=== PATIENT | female | born 2000 | race American Indian/Alaskan Native ===

== ENCOUNTER 2021-04-20 13:50 | Observation (INO) | payer MEDICAID ==
[2021-04-20] MEDS ORDERED: LACTATED RINGERS 1,000 ML ONE (14:43)
[2021-04-20] MEDS ORDERED: LACTATED RINGERS 500 ML IV ONE (14:50)
[2021-04-20] MEDS ORDERED: LACTATED RINGERS 1,000 ML IV SCH (15:00)
--- NOTE | 2021-04-20 16:02 | Ultrasound Report ---
ULTRASOUND OBSTETRIC LIMITED ULTRASOUND BIOPHYSICAL PROFILE INDICATION / CLINICAL INFORMATION: labor. Clinical Gestational Age (GA) in weeks, days: 29, 3 TECHNIQUE: Transabdominal. COMPARISON: None available. FINDINGS: BREATHING MOVEMENT = 2 GROSS BODY MOVEMENT = 2 TONE = 2 QUALITATIVE AMNIOTIC FLUID VOLUME = 2 TOTAL BIOPHYSICAL SCORE = 8/8 HEART RATE (beats per minute): 143 AMNIOTIC FLUID INDEX (cm) = 18 (normal = 7-24 cm) PRESENTATION: Breech. ADDITIONAL FINDINGS: None. IMPRESSION: 1. Biophysical Score = 8/8 2. Amniotic fluid index is within the normal range. Fetus is in breech presentation. UMBILICAL ARTERY VELOCIMETRY heart rate is 143 bpm. S/D ratio was measured x3. Maximum measurement is 2.2 with an average of 2.16. The waveform appears n ormal and is persistent. The resistive index is 0.54 with a normal waveform and a persistent pattern. IMPRESSION: Normal cord Doppler is within normal limits. Signer Name: Andres Mathews MD Signed: 04/20/2021 3:40 PM Workstation Name: [email or web address]
[2021-04-20] MEDS ORDERED: ONDANSETRON 4 MG/2 ML INJ IV PRN (16:17)
[2021-04-20] MEDS ORDERED: ACETAMINOPHEN 325 MG TAB PO PRN (16:17)
--- NOTE | 2021-04-20 16:26 | History and Physical Report ---
History of Present Illness Date of examination: 04/20/21 Date of admission: 04/20/21 Chief complaint: "I wasn't feeling my baby move" History of present illness: EDC Confirmation: 07/03/2021 Past History : 1 Term Births: 0 Premature Births: 0 Living Children: 0 Para: 0 Mult. Births: 0 Prev : 0 Aborta: 0 Elect. Ab: 0 Spont. Ab: 0 Ectopics: 0 Risk Factors: Smoked Tobacco Use: Never smoker Smokeless Tobacco Use: Never Passive smoke exposure: no Drug use: no HIV high-risk behavior: no Caffeine use: 0 drinks per day Alcohol use: no Exercise: no Seatbelt use: 100 % Family History Risk Factors: Family History of UT in females < 65 years old: no Family History of UT in males < 55 years old: yes Dietary Counseling: pn yes Family History Summary: MGM - Has Family History of Lung Cancer - Entered On: 01/03/2021 Father - Has Family History of Hypertension - Entered On: 01/03/2021 Past Medical History: UTI's Recurrent 3-4 times/yr since 2018 Seizure x1 at 1 yr old and never had one ever again, no meds, no current specialist Past Surgical History: negative Past Medical History Anesthesia Complications: negative Anemia: negative Autoimmune Disorder: negative Bleeding Disorder: negative Blood Transfusions: negative Breast Disease: negative Diabetes: negative Heart Disease: negative Hypertension: negative Hepatitis/Liver Disease: negative Kidney Disease/UTI: negative Neurologic/Epilepsy/Migraines: negative Phlebitis/Varicosities: negative Psychiatric: negative Pulmonary Disease/Asthma: negative Thyroid Disease: negative Hospitalizations: negative Surgery (Non-database report writer): negative Abnormal PAP: negative CELSA Exposure: negative Infertility: negative Uterine Anomaly: negative Uterine Surgery (not C/S): negative Other Gynecologic Problems: negative Infection History Hx of STD: gonorrhea HIV Risk Eval: no Hepatitis B Risk Eval: low risk Personal hx. of genital herpes: no Partner hx. of genital herpes: no Rash, Viral, or Febrile illness since last LMP? no Varicella/Chicken Pox Status: Immunized TB Risk: no Genetic History Congenital Heart Defect: Mom: no Dad: no Cristal Disease: Mom: no Dad: no Thalassemia Mom: no Dad: no Neural Tube Defect Mom: no Dad: no Down's Syndrome Mom: no Dad: no Umesh-Sachs Mom: no Dad: no Sickle Cell Disease/Trait Mom: no Dad: no Hemophilia Mom: no Dad: no Muscular Dystrophy Mom: no Dad: no Cystic Fibrosis Mom: no Dad: no James Chorea Mom: no Dad: no Mental Retardation Mom: no Dad: no Fragile X Mom: no Dad: no Other Genetic/Chromosomal Disorder Mom: no Dad: no Child w/other defect Mom: no Dad: no Enviromental Exposures Enviromental Exposures Reviewed Xray Exposure: no Medication, drug, or alcohol use since LMP: no Chemical/Other Exposure: no Exposure to Cat Liter: no Hx of Parvovirus (Fifth Disease): no Occupational Exposure to Children: none Active Medications (reviewed today): MACROBID 100 MG ORAL CAPSULE (NITROFURANTOIN MONOHYD MACRO) 1 bid po PNV () Current Allergies (reviewed today): No known allergies Past History Past Medical History: other (see HPI) Past Surgical History: other (see HPI) 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) Family/Genetic History: other (see HPI) Social history: other (see HPI) - Obstetrical History Expected Date of Delivery: 07/03/21 Actual Gestation: 29 Week(s) 3 Day(s) : 1 Para: 0 Hx # Term Pregnancies: 0 Number of Pregnancies: 0 Spontaneous Abortions: 0 Induced : 0 Number of Living Children: 0 Medications and Allergies Allergies Allergy/AdvReac Type Severity Reaction Status Date / Time No Known Allergies Allergy Unverified 04/20/21 14:50 Active Meds: Active Medications Acetaminophen (Acetaminophen 325 Mg Tab) 650 mg PO Q4H PRN PRN Reason: Pain MILD(1-3)/Fever >100.5/CASTORENA Betamethasone Acet/Betameth SodPhos (Betamet Acet/Betamet Na Ph 6 Mg/Ml Inj 5 Ml Mdv) 12 mg IM Q24HR NAVNEET Stop: 04/21/21 10:01 Lactated Ringer's (Lactated Ringers) 1,000 mls @ 125 mls/hr IV DIRECT NAVNEET Multivitamins/Iron/Calcium ( Xcw18-Tf Fumarate-Folic Acid Vit Tab) 1 each PO QDAY NAVNEET Ondansetron HCl (Ondansetron 4 Mg/2 Ml Inj) 4 mg IV Q6H PRN PRN Reason: Nausea And Vomiting Review of Systems All systems: negative - Vital Signs Vital signs: Vital Signs Pulse BP Pulse Ox 81 99/64 94 04/20/21 14:31 04/20/21 14:31 04/20/21 14:31 Temp Pulse Resp BP Pulse Ox 98.2 F 96 H 16 118/66 98 04/20/21 16:22 04/20/21 16:23 04/20/21 16:22 04/20/21 15:53 04/20/21 16:24 - Physical Exam Breasts: Positive: deferred Cardiovascular: Regular rate Lungs: Positive: Clear to auscultation, Normal air movement Abdomen: Positive: normal appearance, soft. Negative: tenderness, guarding, ri gidity Genitourinary (Female): Positive: normal external genitalia, normal perenium Vulva: both: normal Vagina: Positive: normal moisture Uterus: Positive: normal size, normal contour Anus/Rectum: Positive: normal perianal skin Extremities: Positive: normal - Obstetrical FHR: other Uterine Contraction Monitor Mode: External Uterine Contraction Pattern: Absent Uterine Tone Measurement Phase: Resting Results Result Diagrams: 04/20/21 14:45 All other labs normal. Tests: (1) Urine Culture, Routine ([id number]) Order Note: Clinical Information: SRC:UR Urine Culture, Routine [A] Final report *1 Tests: (2) Result ([id number]) ! Result 1 [A] "Result Below..." *2 RESULT: Staphylococcus aureus Greater than 100,000 colony forming units per mL Most isolates of Staphylococcus sp. produce a beta-lactamase enzyme rendering them resistant to penicillin. Please contact the laboratory if penicillin is being considered for therapy. ! Result 2 [A] BETAGB *3 Beta hemolytic Streptococcus, group B Greater than 100,000 colony forming units per mL Penicillin and ampicillin are drugs of choice for treatment of beta-hemolytic streptococcal infections. Susceptibility testing of penicillins and other beta-lactam agents approved by the FDA for treatment of beta-hemolytic streptococcal infections need not be performed routinely because nonsusceptible isolates are extremely rare in any beta-hemolytic streptococcus and have not been reported for Streptococcus pyogenes (group A). (CLSI) ! Antimicrobial Susceptibility MIHEAD *4 S = Susceptible; I = Intermediate; R = Resistant P = Positive; N = Negative MICS are expressed in micrograms per mL Antibiotic RSLT#1 RSLT#2 RSLT#3 RSLT#4 Ciprofloxacin S<=0.5 Gentamicin S<=0.5 Levofloxacin S<=0.12 Linezolid S =1 Moxifloxacin S<=0.25 Nitrofurantoin S<=16 Oxacillin S<=0.25 Quinupristin/Dalfopristin S<=0.25 Rifampin S<=0.5 Tetracycline S<=1 Trimethoprim/Sulfa S<=10 Vancomycin S<=0.5 Performed At: , [facility] [address] [id number] Joaquim Yee MD Phone: [phone] Note: An exclamation kasey (!) indicates a result that was not dispersed into the flowsheet. Document Creation Date: 01/08/2021 11:11 AM Tests: (1) Profile I ([id number]) HBsAg Screen Negative Negative *1 RPR Non Reactive Non Reactive *2 Rubella Antibodies, IgG 1.98 index Immune >0.99 *3 Non-immune <0.90 Equivocal 0.90 - 0.99 Immune >0.99 ABO Grouping A *4 Rh Factor Positive *5 Please note: Prior records for this patient's ABO / Rh type are not available for additional verification. Antibody Screen Negative Negative *6 WBC 5.8 x10E3/uL 3.4-10.8 *7 RBC 3.85 x10E6/uL 3.77-5.28 *8 Hemoglobin 12.0 g/dL 11.1-15.9 *9 Hematocrit 36.2 % 34.0-46.6 *10 MCV 94 fL 79-97 *11 MCH 31.2 pg 26.6-33.0 *12 MCHC 33.1 g/dL 31.5-35.7 *13 RDW 12.7 % 11.7-15.4 *14 Platelets 209 x10E3/uL 150-450 *15 Neutrophils 69 % Not Estab. *16 Lymphs 22 % Not Estab. *17 Monocytes 8 % Not Estab. *18 Eos 0 % Not Estab. *19 Basos 1 % Not Estab. *20 ! Immature Cells <No Reported Value> *21 Neutrophils (Absolute) 4.0 x10E3/uL 1.4-7.0 *22 Lymphs (Absolute) 1.3 x10E3/uL 0.7-3.1 *23 Monocytes(Absolute) 0.5 x10E3/uL 0.1-0.9 *24 Eos (Absolute) 0.0 x10E3/uL 0.0-0.4 *25 Baso (Absolute) 0.0 x10E3/uL 0.0-0.2 *26 ! Immature Granulocytes 0 % Not Estab. *27 ! Immature Grans (Abs) 0.0 x10E3/uL 0.0-0.1 *28 ! NRBC <No Reported Value> *29 Hematology Comments: <No Reported Value> *30 Tests: (2) AFP Tetra ([id number]) ! Results Report *31 ! Test Results: *Screen Negative* *32 ! Gest. Age on Collection Date 17.1 WEEKS *33 ! Gestat. Age Based On TRISTON *34 07/03/2021 ! M[age] TRISTON 20.5 yr *35 ! Race Black *36 ! Weight 107 lbs *37 ! Insulin Dep Diabetes No *38 ! Multiple Gestation No *39 ! AFP Value 52.7 ng/mL *40 ! AFP MoM 0.95 *41 ! hCG Value 52501 mIU/mL *42 ! hCG MoM 0.56 *43 ! uE3 Value 1.67 ng/mL *44 ! uE3 MoM 1.24 *45 ! KIERA Value 156.81 pg/mL *46 ! KIERA MoM 0.81 *47 ! OSBR Risk 1 [place] [address] *48 ! DSR (Second Trimester) 1 [place] [address] *49 ! DSR (By Age) 1 IN 1139 *50 ! T18 Risk Not increased *51 ! T18 (By Age) 1:4436 *52 ! Interpretation NL42 *53 Interpretation: Screen Negative This result is screen negative for OSB, Down Syndrome and Trisomy 18. The AFP MoM and patient specific risks calculated are based on the gestational age and the clinical information provided. This test can identify up to 80% of open neural tube defects. Closed neural tube defects and some open defects may not be detected by this test. The combination of maternal age, AFP, hCG, uE3, and KIERA identifies 75-80% of Down Syndrome. The combination of maternal age, AFP, hCG and uE3 identifies 60% of Trisomy 18 pregnancies. The [employer] recommends amniocentesis be offered to women age 35 and older. Recalculations are not recommended when gestational dating by LMP and ultrasound are within 10 days. ! Comments: [facility] *54 Sona Goodson, Ph.D., [facility] Director References: Available Upon Request. Multiples Of Median Cutoffs Abbreviation Definitions For AFP Elevations IDD- Insulin Dep Diabetes [place] 2.5 Black 2.8 OSBR- Open Spina Bifida IDD 2.0 Twins 4.5 Risk DSR Cutoff 1:270 DSR- Down Syndrome Risk T18 Cutoff 1:100 T18- Trisomy 18 Down Syndrome and Trisomy 18 screening are considered Investigational For further inquiries contact [employer] at [phone]. Tests: (3) HB Solu + Rflx Frac ([id number]) Hemoglobin (Hgb) Solubility Negative Negative *55 Tests: (4) HIV Ag/Ab with Reflex ([id number]) HIV Screen 4th Generation wRfx Non Reactive Non Reactive *56 Tests: (5) HCV Antibody reflex to ELEUTERIO ([id number]) ! HCV Ab <0.1 s/co ratio 0.0-0.9 *57 Tests: (6) Interpretation: ([id number]) ! Interpretation: SPRCS *58 Negative Not infected with HCV, unless recent infection is suspected or other evidence exists to indicate HCV infection. Assessment and Plan pt @ 29.3wks EGA presents for c/o DFM. CNM called to bedside for FHT's 60's bpm. Irregular heartbeat noted audibly; US immediately to BS and results WNL. Pt reports appt scheduled today with AMFM for irregular heartbeat seen on office US. Plan to admit to OBS for close monitoring and AMFM consult. Dr. Langford aware. AMFM notified. - Patient Problems (1) 29 weeks gestation of Status: Acute (2) Supervision of high risk in third trimester Status: Acute (3) Irregular heart rhythm in fetus Status: Acute Plan to address problem: @[address] Danie GUARDADO notified of pt with DFM, BPP 04/23, doppler flow studies WNL and SHERITA 18cm; recommendations received for [place] heart consult with echo for suspected heart block. Dr. Haile to call and arrange consult @[address] Haile- Dr. Chance to come to bedside today for echo and will give recommendations based on echo for possible discharge home and outpatient management. Dr Haile made aware- Pt reports feeling normal movement at this time. Recommendations recv'd for intermittent monitoring q4h for 20mins and not to perform CS for irregular heartbeat. Dr. Langford made aware. POC reviewed with pt, family member @BS, and Sun eligibility manager. All questions and concerns addressed. @[address] from Dr Chance and Dr Haile with Dx and discharge recommendations for pt to see AMFM on Saturday. Dr Langford made aware.
[2021-04-20] MEDS ORDERED: BETAMET ACET/BETAMET NA PH 6 MG/ML INJ 5 ML MDV IM SCH (17:00)
[2021-04-20 17:11] LABS: Basophils % (Auto) 0.4 % (0.0-1.8); Eosinophils % (Auto) 0.2 % (0.0-4.3); Hematocrit 33.8 % (30.3-42.9); Hemoglobin 11.8 gm/dl (10.1-14.3); Lymphocytes % (Auto) 23.8 % (13.4-35.0); Mean Corpuscular HGB Conc 35 % (30-34); Mean Corpuscular Volume 95 fl (79-97); Monocytes # (Auto) 0.8 K/mm3 (0.0-0.8); Monocytes % (Auto) 9.3 % (0.0-7.3); Red Blood Count 3.54 M/mm3 (3.65-5.03)
[2021-04-20 17:13] LABS: Platelet Count 148 K/mm3 (140-440)
[2021-04-20 19:29] VITALS: BP 108/65
--- NOTE | 2021-04-20 20:42 | Consultation ---
History of Present Illness - Reason for Consult Consult date: 04/20/21 arrhythmia Requesting physician: SHEKHAR OLIVER - History of Present Illness 20 yo female with a leigh carrying fetus at 29 3/7 weeks gestation. On March 30, the fetus was noted to have an irregular heart rhythm and follow up was recommended with M. The patient missed her appt today but noted decreased movement over the last 24 hours. She was therefore refer red to [facility] for evaluation. While on monitor drops in the HR to the 60s were noted with concern for possible heart block. Therefore we were asked to evaluate the HR. No recent medications or caffeine intake. PmHx significant for UTI TRISTON: 07/03/21 Past History Past Medical History: other (Hx of UTI during this for which she received abx. Last abx use >1 month ago) Family history: other (Ms. Dominguez has a first cousin with a history of a heart problem requiring a pacemaker. No other family history of heart disease) Medications and Allergies Allergies Allergy/AdvReac Type Severity Reaction Status Date / Time No Known Allergies Allergy Unverified 04/20/21 14:50 Active Meds: Active Medications Acetaminophen (Acetaminophen 325 Mg Tab) 650 mg PO Q4H PRN PRN Reason: Pain MILD(1-3)/Fever >100.5/CASTORENA Betamethasone Acet/Betameth SodPhos (Betamet Acet/Betamet Na Ph 6 Mg/Ml Inj 5 Ml Mdv) 12 mg IM Q24H NAVNEET Stop: 04/21/21 17:01 Last Admin: 04/20/21 16:36 Dose: 12 mg Documented by: Lactated Ringer's (Lactated Ringers) 1,000 mls @ 125 mls/hr IV DIRECT NAVNEET Ondansetron HCl (Ondansetron 4 Mg/2 Ml Inj) 4 mg IV Q6H PRN PRN Reason: Nausea And Vomiting Exam - Constitutional Vitals: Temp Pulse Resp BP Pulse Ox 98.2 F 103 H 16 108/65 100 04/20/21 16:22 04/20/21 19:28 04/20/21 16:22 04/20/21 19:28 04/20/21 16:43 Results - Labs CBC & Chem 7: 04/20/21 14:45 Labs: Abnormal lab results 04/20/21 Range/Units 14:45 RBC 3.54 L (3.65-5.03) M/mm3 MCH 33 H (28-32) pg MCHC 35 H (30-34) % RDW 13.0 L (13.2-15.2) % Lea % (Auto) 9.3 H (0.0-7.3) % Assessment and Plan ECHO report: The fetus is in the cephalic position. There is levocardia with atrial and abdominal situs solitus. There is a normal heart rate with one-to-one conduction at a rate of 120-125 bpm. The superior and inferior vena cavae return normally to the right atrium. At least 2 of 4 pulmonary veins return normally to the left atrium. Atrial sizes are normal. There is a PFO with [id number] shunting. The AV valves are normal with no stenosis or insufficiency. There is normal biventricular size and systolic function. There are no appreciable VSDs. Semilunar valves were normal with no stenosis. No aortic insufficiency. Trace intermittent pulmonary valve insufficiency noted. The great arteries are normally related. The branch pulmonary arteries are normal. The ductal and aortic arch is widely patent. The ductus arteriosus shunting normally right to left. There is a normal Doppler profile in the umbilical artery, vein and ductus venosus. There is no pericardial effusion and there is no cardiomegaly. Assesment: 1. Structurally normal heart with normal function 2. premature atrial contractions Rec: I discussed the above findings as well as the limitations of echocardiography with the patient and father of the child. They understand that atrial premature contractions are the most frequent rhythm abnormality in the fetus. They can be related to structural or functional heart disease but in this case are a benign finding . Most resolve on their own either pre- or postnatally. However, 1% of babies with atrial premature contractions are at risk for developing supraventricular tachycardia which can problematic. For t hat reason continued monitoring for sustained tachycardia by your molder sweep and/or perinatologist throughout the is recommended. If tachycardia is noted or signs of early heart failure or hydrops develop, we would like to see you again or consult with you by telephone. I explained to the patient that minor valve abnormalities, problems involving the veins and arteries outside of the heart, and small atrial and ventricular septal defects cannot be ruled out with echocardiogram. Total consult time: 1 hour (scanning, discussion of findings and limitations, charting, and discussion of the case with her MFM and OB.) - Patient Problems (1) Premature atrial contractions of fetus affecting management of Current Visit: Yes Status: Acute
--- NOTE | 2021-04-20 21:27 | Discharge Summary ---
Providers - Providers Date of Admission: 04/20/21 16:18 Date of discharge: 04/20/21 Attending physician: MONO ALFONSO Primary care physician: MONO ALFONSO Hospitalization Reason for admission: observation Episiotomy: none Laceration: none Other procedures: none complications: none Discharge diagnosis: other (IUP @ , PAC's of fetus affecting ) Condition at discharge: Good Disposition: DC-01 TO HOME OR SELFCARE - Discharge Diagnoses (1) 29 weeks gestation of Status: Acute (2) Supervision of high risk in third trimester Status: Acute (3) Irregular heart rhythm in fetus Status: Acute Plan - Provider Discharge Summary Activity: routine Diet: routine Instructions: routine Additional instructions: [] Smoking cessation referral if applicable(refer to patient education folder for contact #) [] Refer to [facility]'s [facility] Booklet Call your doctor immediately for: * Fever > 100.5 * Vaginal bleeding * Severe persistent headache * Shortness of breath * Reddened, hot, painful area to leg or breast * decreased movement <10 movements in 2 hours * contractions >6/hour * rupture of membranes Please schedule a follow up appointment for Saturday with [facility]. Thank you! - Follow up plan Follow up: MONO ALFONSO MD [Primary Care Provider] - 7 Days Forms: [facility] Discharge Summary
[2021-04-20] MEDS ORDERED: ZOLPIDEM 5 MG TAB PO PRN (21:28)
[2021-04-21] MEDS ORDERED: PRENATAL VIT27-FE FUMARATE-FOLIC ACID VIT TAB PO SCH (10:00)
== END 2021-04-20 21:00 | disposition home or self-care (01) ==
LOC: TRG 13:50 → APU 13:53 → LD 15:45 → TRG 16:17 → LD 16:18
PROVIDERS: ADMIT Obstetrics & Gynecology; ATTEND Obstetrics & Gynecology
DX: O36.8330 Maternal care for abnormalities of the fetal heart rate or rhythm, third trimester, not applicable or unspecified (principal); O09.613 Supervision of young primigravida, third trimester; O36.8130 Decreased fetal movements, third trimester, not applicable or unspecified; Z3A.29 29 weeks gestation of pregnancy
CPT/HCPCS: 36415; 76815; 76819; 76820; 85025; 86592; 86850; 86900; 86901; 96372; G0378; J0702; J7120

== ENCOUNTER 2021-06-20 20:56 | Inpatient (IN) | payer MEDICAID ==
--- NOTE | 2021-06-20 21:45 | History and Physical Report ---
History of Present Illness Date of examination: 06/20/21 Date of admission: 06/20/21 20:56 Chief complaint: Admitted for scheduled IOL d/t IUGR per [facility]'s recommendation History of present illness: EDC Confirmation: 07/03/2021 Past History : 1 Term Births: 0 Premature Births: 0 Living Children: 0 Para: 0 Mult. Births: 0 Prev : 0 Aborta: 0 Elect. Ab: 0 Spont. Ab: 0 Ectopics: 0 Risk Factors: Smoked Tobacco Use: Never smoker Smokeless Tobacco Use: Never Passive smoke exposure: no Drug use: no HIV high-risk behavior: no Caffeine use: 0 drinks per day Alcohol use: no Exercise: no Seatbelt use: 100 % Family History Risk Factors: Family History of NH in females < 65 years old: no Family History of NH in males < 55 years old: yes Dietary Counseling: pn yes Family History Summary: MGM - Has Family History of Lung Cancer - Entered On: 01/03/2021 Father - Has Family History of Hypertension - Entered On: 01/03/2021 Past Medical History: UTI's Recurrent 3-4 times/yr since 2018 Seizure x1 at 1 yr old and never had one ever again, no meds, no current specialist Past Surgical History: negative Past Medical History Anesthesia Complications: negative Anemia: negative Autoimmune Disorder: negative Bleeding Disorder: negative Blood Transfusions: negative Breast Disease: negative Diabetes: negative Heart Disease: negative Hypertension: negative Hepatitis/Liver Disease: negative Kidney Disease/UTI: negative Neurologic/Epilepsy/Migraines: negative Phlebitis/Varicosities: negative Psychiatric: negative Pulmonary Disease/Asthma: negative Thyroid Disease: negative Hospitalizations: negative Surgery (Non-still photographer): negative Abnormal PAP: negative CELSA Exposure: negative Infertility: negative Uterine Anomaly: negative Uterine Surgery (not C/S): negative Other Gynecologic Problems: negative Infection History Hx of STD: gonorrhea HIV Risk Eval: no Hepatitis B Risk Eval: low risk Personal hx. of genital herpes: no Partner hx. of genital herpes: no Rash, Viral, or Febrile illness since last LMP? no Varicella/Chicken Pox Status: Immunized TB Risk: no Genetic History Congenital Heart Defect: Mom: no Dad: no Cristal Disease: Mom: no Dad: no Thalassemia Mom: no Dad: no Neural Tube Defect Mom: no Dad: no Down's Syndrome Mom: no Dad: no Umesh-Sachs Mom: no Dad: no Sickle Cell Disease/Trait Mom: no Dad: no Hemophilia Mom: no Dad: no Muscular Dystrophy Mom: no Dad: no Cystic Fibrosis Mom: no Dad: no James Chorea Mom: no Dad: no Mental Retardation Mom: no Dad: no Fragile X Mom: no Dad: no Other Genetic/Chromosomal Disorder Mom: no Dad: no Child w/other defect Mom: no Dad: no Enviromental Exposures Enviromental Exposures Reviewed Xray Exposure: no Medication, drug, or alcohol use since LMP: no Chemical/Other Exposure: no Exposure to Cat Liter: no Hx of Parvovirus (Fifth Disease): no Occupational Exposure to Children: none Current Allergies (reviewed today): No known allergies Past History Past Medical History: other (see HPI) Past Surgical History: other (see HPI) 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) Family/Genetic History: other (see HPI) Social history: no significant social history - Obstetrical History Expected Date of Delivery: 07/03/21 Actual Gestation: 38 Week(s) 3 Day(s) : 1 Para: 0 Hx # Term Pregnancies: 0 Number of Pregnancies: 0 Spontaneous Abortions: 0 Induced : 0 Number of Living Children: 0 Medications and Allergies Allergies Allergy/AdvReac Type Severity Reaction Status Date / Time No Known Allergies Allergy Unverified 04/20/21 14:50 Home Medications Medication Instructions Recorded Confirmed Last Taken Type No Known Home Medications [No 06/20/21 06/20/21 Unknown History Reported Home Medications] Review of Systems All systems: negative - Physical Exam Breasts: Positive: normal Cardiovascular: Regular rate Lungs: Positive: Normal air movement Abdomen: Positive: normal appearance, soft Genitourinary (Female): Positive: normal external genitalia, normal perenium Vulva: both: normal - Obstetrical FHR: category 1 Uterine Contraction Monitor Mode: External Uterine Contraction Pattern: Irregular Results Result Diagrams: 06/20/21 22:00 All other labs normal. Assessment and Plan 20 y/o @ 38+1 weeks admitted for serial IOL d/t IUGR. also significant for irregular FHR with PACS. GBS +. - Patient Problems (1) 38 weeks gestation of Current Visit: Yes Status: Acute (2) GBS (group B Streptococcus carrier), +RV culture, currently Current Visit: Yes Status: Acute Plan to address problem: amp q 4hrs when closer to active labor (3) IUGR (intrauterine growth restriction) Current Visit: Yes Status: Acute Plan to address problem: close monitoring of FHT
[2021-06-20] MEDS ORDERED: miSOPROStol 200 MCG TAB PR PRN (21:46)
[2021-06-20] MEDS ORDERED: MINERAL OIL 30 ML ORAL LIQD PO PRN (21:46)
[2021-06-20] MEDS ORDERED: LIDOCAINE (2%) 20 MG/1 ML VIAL 20 ML MDV INFILTRATI ONE (21:46)
[2021-06-20] MEDS ORDERED: TERBUTALINE 1 MG/1 ML INJ SUB-Q PRN (21:46)
[2021-06-20] MEDS ORDERED: CARBOPROST TROMETHAMINE 250 MCG/1 ML INJ IM PRN (21:46)
[2021-06-20] MEDS ORDERED: OXYTOCIN 10 UNIT/1 ML INJ IM PRN (21:46)
[2021-06-20] MEDS ORDERED: ACETAMINOPHEN 325 MG TAB PO PRN (21:46)
[2021-06-20] MEDS ORDERED: ePHEDrine SULFATE 50 MG/1 ML INJ IV PRN (21:46)
[2021-06-20] MEDS ORDERED: ONDANSETRON 4 MG/2 ML INJ IV PRN (21:46)
[2021-06-20] MEDS ORDERED: LOPERAMIDE 2 MG CAP PO PRN (21:46)
[2021-06-20] MEDS ORDERED: METHYLERGONOVINE MALEATE 0.2 MG/ML VIAL IM PRN (21:46)
[2021-06-20] MEDS ORDERED: OXYTOCIN DRIP 30 UNITS/500 ML BAG IV SCH (22:00)
[2021-06-20 22:46] LABS: Hematocrit 33.9 % (30.3-42.9); Hemoglobin 11.4 gm/dl (10.1-14.3); Mean Corpuscular HGB Conc 34 % (30-34); Mean Corpuscular Volume 95 fl (79-97); Platelet Count 169 K/mm3 (140-440); Red Blood Count 3.56 M/mm3 (3.65-5.03); Red Cell Distribution Width 13.5 % (13.2-15.2)
[2021-06-20] MEDS ORDERED: DINOPROSTONE 10 MG VAG SUPP VG ONE (23:59)
[2021-06-21] MEDS: NalbUPHINE 10 MG/1 ML INJ IV PRN ×2 (05:24→13:34)
[2021-06-21] MEDS: LACTATED RINGERS 1,000 ML IV SCH ×2 (05:25→13:34)
--- NOTE | 2021-06-21 09:23 | Progress Note ---
Assessment and Plan A: 20 y.o. @ 38.2 wks, IOL d/t IUGR P: Cervidil removed. Allow patient to eat breakfast. Start Pitocin after breakfast. Subjective - Subjective Date of service: 06/21/21 Principal diagnosis: IOL d/t IUGR @ 38.2 wks Patient reports: movement normal, no new complaints, no loss of fluid, no vaginal bleeding, no contractions Objective - Vital Signs Vital Signs: Vital Signs - 12hr 06/20/21 06/20/21 06/20/21 21:44 21:46 21:48 Temperature 98.7 F Pulse Rate 80 96 H 80 Respiratory 12 Rate Blood Pressure 112/73 Blood Pressure 112/73 [Right] O2 Sat by Pulse 100 100 Oximetry 06/20/21 06/20/21 06/20/21 21:51 21:56 22:01 Temperature Pulse Rate 79 90 84 Respiratory Rate Blood Pressure Blood Pressure [Right] O2 Sat by Pulse 100 100 100 Oximetry 06/20/21 06/20/21 06/20/21 22:06 22:11 22:16 Temperature Pulse Rate 83 84 86 Respiratory Rate Blood Pressure Blood Pressure [Right] O2 Sat by Pulse 99 100 100 Oximetry 06/20/21 06/20/21 06/20/21 22:21 22:26 22:31 Temperature Pulse Rate 90 76 81 Respiratory Rate Blood Pressure Blood Pressure [Right] O2 Sat by Pulse 100 100 100 Oximetry 06/20/21 06/20/21 06/20/21 22:36 22:41 22:46 Temperature Pulse Rate 84 83 81 Respiratory Rate Blood Pressure Blood Pressure [Right] O2 Sat by Pulse 100 100 100 Oximetry 06/20/21 06/20/21 06/20/21 22:51 22:56 23:01 Temperature Pulse Rate 76 79 89 Respiratory Rate Blood Pressure Blood Pressure [Right] O2 Sat by Pulse 100 98 100 Oximetry 06/20/21 06/20/21 06/20/21 23:06 23:11 23:16 Temperature Pulse Rate 77 82 75 Respiratory Rate Blood Pressure Blood Pressure [Right] O2 Sat by Pulse 100 100 100 Oximetry 06/20/21 06/20/21 06/20/21 23:21 23:26 23:31 Temperature Pulse Rate 72 89 102 H Respiratory Rate Blood Pressure Blood Pressure [Right] O2 Sat by Pulse 99 99 100 Oximetry 06/20/21 06/20/2106/20/21 23:36 23:41 23:46 Temperature Pulse Rate 97 H 72 93 H Respiratory Rate Blood Pressure Blood Pressure [Right] O2 Sat by Pulse 99 99 100 Oximetry 06/20/21 06/20/21 06/21/21 23:51 23:56 00:01 Temperature Pulse Rate 78 80 77 Respiratory Rate Blood Pressure Blood Pressure [Right] O2 Sat by Pulse 99 100 100 Oximetry 06/21/21 06/21/21 06/21/21 00:06 00:11 00:16 Temperature Pulse Rate 70 94 H 72 Respiratory Rate Blood Pressure Blood Pressure [Right] O2 Sat by Pulse 100 99 99 Oximetry 06/21/21 06/21/21 06/21/21 00:21 00:26 00:31 Temperature Pulse Rate 87 87 81 Respiratory Rate Blood Pressure Blood Pressure [Right] O2 Sat by Pulse 98 100 100 Oximetry 06/21/21 06/21/21 06/21/21 00:36 00:41 00:46 Temperature Pulse Rate 74 74 95 H Respiratory Rate Blood Pressure Blood Pressure [Right] O2 Sat by Pulse 100 100 100 Oximetry 06/21/21 06/21/21 06/21/21 00:51 00:56 01:01 Temperature Pulse Rate 82 82 74 Respiratory Rate Blood Pressure Blood Pressure [Right] O2 Sat by Pulse 100 100 99 Oximetry 06/21/21 06/21/21 06/21/21 01:06 01:11 02:48 Temperature Pulse Rate 95 H 91 H 74 Respiratory Rate Blood Pressure Blood Pressure [Right] O2 Sat by Pulse 99 100 100 Oximetry 06/21/21 06/21/21 06/21/21 02:53 02:58 03:03 Temperature Pulse Rate 70 77 71 Respiratory Rate Blood Pressure Blood Pressure [Right] O2 Sat by Pulse 100 99 100 Oximetry 06/21/21 06/21/21 06/21/21 03:08 03:13 03:18 Temperature Pulse Rate 78 84 69 Respiratory Rate Blood Pressure Blood Pressure [Right] O2 Sat by Pulse 100 99 100 Oximetry 06/21/21 06/21/21 06/21/21 03:23 03:28 03:33 Temperature Pulse Rate 98 H 75 76 Respiratory Rate Blood Pressure Blood Pressure [Right] O2 Sat by Pulse 100 100 99 Oximetry 06/21/21 06/21/21 06/21/21 03:38 03:43 03:48 Temperature Pulse Rate 76 82 80 Respiratory Rate Blood Pressure Blood Pressure [Right] O2 Sat by Pulse 100 100 100 Oximetry 06/21/21 06/21/21 06/21/21 03:53 03:58 04:03 Temperature Pulse Rate 89 74 74 Respiratory Rate Blood Pressure Blood Pressure [Right] O2 Sat by Pulse 100 100 99 Oximetry 06/21/21 06/21/21 06/21/21 04:08 04:13 04:18 Temperature Pulse Rate 69 67 72 Respiratory Rate Blood Pressure Blood Pressure [Right] O2 Sat by Pulse 100 99 100 Oximetry 06/21/21 06/21/21 06/21/21 04:23 04:28 04:33 Temperature Pulse Rate 69 67 68 Respiratory Rate Blood Pressure Blood Pressure [Right] O2 Sat by Pulse 100 100 100 Oximetry 06/21/21 06/21/21 06/21/21 04:38 04:43 04:48 Temperature Pulse Rate 80 72 74 Respiratory Rate Blood Pressure Blood Pressure [Right] O2 Sat by Pulse 100 100 99 Oximetry 06/21/21 06/21/21 06/21/21 04:53 04:58 05:03 Temperature Pulse Rate 68 81 73 Respiratory Rate Blood Pressure Blood Pressure [Right] O2 Sat by Pulse 100 100 100 Oximetry 06/21/21 06/21/21 06/21/21 05:08 05:13 05:18 Temperature Pulse Rate 65 69 79 Respiratory Rate Blood Pressure Blood Pressure [Right] O2 Sat by Pulse 100 100 100 Oximetry 06/21/21 06/21/21 06/21/21 05:21 05:23 05:28 Temperature Pulse Rate 82 69 84 Respiratory Rate Blood Pressure 120/77 Blood Pressure [Right] O2 Sat by Pulse 100 100 Oximetry 06/21/21 06/21/21 06/21/21 05:33 05:38 05:43 Temperature Pulse Rate 77 72 72 Respiratory Rate Blood Pressure Blood Pressure [Right] O2 Sat by Pulse 99 99 99 Oximetry 06/21/21 06/21/21 06/21/21 05:48 05:53 05:58 Temperature Pulse Rate 72 74 93 H Respiratory Rate Blood Pressure Blood Pressure [Right] O2 Sat by Pulse 99 100 100 Oximetry 06/21/21 06/21/21 06/21/21 06:03 06:08 06:13 Temperature Pulse Rate 77 78 77 Respiratory Rate Blood Pressure Blood Pressure [Right] O2 Sat by Pulse 100 100 100 Oximetry 06/21/21 06/21/21 06/21/21 06:29 06:34 06:39 Temperature Pulse Rate 72 74 63 Respiratory Rate Blood Pressure Blood Pressure [Right] O2 Sat by Pulse 100 100 98 Oximetry 06/21/21 06/21/21 06/21/21 06:40 06:44 06:49 Temperature Pulse Rate 68 66 71 Respiratory Rate Blood Pressure Blood Pressure [Right] O2 Sat by Pulse 91 99 98 Oximetry 06/21/21 06/21/21 06/21/21 06:54 06:59 07:04 Temperature Pulse Rate 67 73 69 Respiratory Rate Blood Pressure Blood Pressure [Right] O2 Sat by Pulse 97 97 100 Oximetry 06/21/21 06/21/21 06/21/21 07:09 07:14 07:19 Temperature Pulse Rate 91 H 84 74 Respiratory Rate Blood Pressure Blood Pressure [Right] O2 Sat by Pulse 100 99 100 Oximetry 06/21/21 06/21/21 06/21/21 07:24 07:29 07:34 Temperature Pulse Rate 72 66 76 Respiratory Rate Blood Pressure Blood Pressure [Right] O2 Sat by Pulse 99 99 99 Oximetry 06/21/21 06/21/21 06/21/21 07:39 07:44 07:49 Temperature Pulse Rate 80 66 70 Respiratory Rate Blood Pressure Blood Pressure [Right] O2 Sat by Pulse 98 99 99 Oximetry 06/21/21 06/21/21 06/21/21 07:54 07:59 08:04 Temperature Pulse Rate 69 92 H 81 Respiratory Rate Blood Pressure Blood Pressure [Right] O2 Sat by Pulse 99 99 97 Oximetry 06/21/21 06/21/21 06/21/21 08:09 08:14 08:18 Temperature Pulse Rate 73 102 H 81 Respiratory Rate Blood Pressure 106/66 Blood Pressure [Right] O2 Sat by Pulse 99 99 Oximetry 06/21/21 06/21/21 06/21/21 08:19 08:24 08:29 Temperature Pulse Rate 79 93 H 88 Respiratory Rate Blood Pressure Blood Pressure [Right] O2 Sat by Pulse 100 100 99 Oximetry 06/21/21 06/21/21 06/21/21 08:44 08:45 08:49 Temperature Pulse Rate 80 81 77 Respiratory Rate Blood Pressure Blood Pressure [Right] O2 Sat by Pulse 99 94 98 Oximetry 06/21/21 06/21/21 06/21/21 08:54 08:59 09:04 Temperature Pulse Rate 71 65 67 Respiratory Rate Blood Pressure Blood Pressure [Right] O2 Sat by Pulse 98 98 98 Oximetry 06/21/21 06/21/21 06/21/21 09:09 09:14 09:19 Temperature Pulse Rate 76 78 93 H Respiratory Rate Blood Pressure Blood Pressure [Right] O2 Sat by Pulse 98 93 97 Oximetry - Exam Narrative Exam: Explained plan of care to patient. Cervidil removed, cervical exam essentially unchanged. Will allow patient to eat breakfast, then start Pitocin. Breasts: deferred Abdomen: Present: normal appearance, soft Vulva: both: normal Uterus: Present: normal FHR: category 1 Uterine Contraction Monitor Mode: External Cervical Dilatation: 1 Cervical Effacement Percentage: 40 station: -2 Uterine Contraction Pattern: Irregular Uterine Tone Measurement Phase: Resting Uterine Contraction Intensity: Mild - Labs Labs: Abnormal Labs 06/20/21 22:00 RBC 3.56 L Laboratory Results - last 24 hr 06/20/21 06/20/21 06/20/21 22:00 22:00 22:00 WBC 6.4 RBC 3.56 L Hgb 11.4 Hct 33.9 MCV 95 MCH 32 MCHC 34 RDW 13.5 Plt Count 169 Syphilis IgG Antibody Nonreactive Blood Type A POSITIVE Antibody Screen Negative
--- NOTE | 2021-06-21 13:05 | Event Note ---
Date: 06/21/21 Was told by RN that patient stated that she felt a "big baby movement". When the RN went to assess the patient, She could not find the heart rate in the same spot and her abdomen appeared to be a different shape. Assessed patient. Feels vertex. Ultrasound ordered and baby in the vertex presentation. Will continue with IOL.
--- NOTE | 2021-06-21 13:41 | Ultrasound Report ---
ULTRASOUND OBSTETRIC LIMITED INDICATION / CLINICAL INFORMATION: presentation.. Clinical Gestational Age (GA) in weeks, days: 38 weeks 2 days TECHNIQUE: Transabdominal. COMPARISON: 04/20/2021 FINDINGS: HEART RATE (beats per minute): 143 PRESENTATION: Cephalic. ADDITIONAL FINDINGS: None. IMPRESSION: Single live intrauterine in cephalic presentation. heart rate measures 143 bpm. Signer Name: Demetri Torres MD Signed: 06/21/2021 1:36 PM Workstation Name: [id number]
[2021-06-21] MEDS ORDERED: fentaNYL 100 MCG/2 ML INJ ONE (16:54)
[2021-06-21] MEDS ORDERED: BUTORPHANOL 2 MG/1 ML INJ IV PRN (17:00)
[2021-06-21] MEDS ORDERED: fentaNYL 100 MCG/2 ML INJ IV PRN (17:00)
--- NOTE | 2021-06-21 17:58 | Progress Note ---
Assessment and Plan A: 20 y.o @ 38.2 wks, IOL d/t IUGR. Cervical exam unchanged. P: Stop Pitocin. Allow patient to eat dinner. Insert Cervidil @ 1900. Subjective - Subjective Date of service: 06/21/21 (Pitocin to be stopped.) Principal diagnosis: IOL d/t IUGR @ 38.2 wks Patient reports: movement normal, no new complaints, no loss of fluid, no vaginal bleeding, no contractions Objective - Vital Signs Vital Signs: Vital Signs - 12hr 06/21/21 06/21/21 06/21/21 05:58 06:03 06:08 Pulse Rate 93 H 77 78 Blood Pressure O2 Sat by Pulse 100 100 100 Oximetry 06/21/21 06/21/21 06/21/21 06:13 06:29 06:34 Pulse Rate 77 72 74 Blood Pressure O2 Sat by Pulse 100 100 100 Oximetry 06/21/21 06/21/21 06/21/21 06:39 06:40 06:44 Pulse Rate 63 68 66 Blood Pressure O2 Sat by Pulse 98 91 99 Oximetry 06/21/21 06/21/21 06/21/21 06:49 06:54 06:59 Pulse Rate 71 67 73 Blood Pressure O2 Sat by Pulse 98 97 97 Oximetry 06/21/21 06/21/21 06/21/21 07:04 07:09 07:14 Pulse Rate 69 91 H 84 Blood Pressure O2 Sat by Pulse 100 100 99 Oximetry 06/21/21 06/21/21 06/21/21 07:19 07:24 07:29 Pulse Rate 74 72 66 Blood Pressure O2 Sat by Pulse 100 99 99 Oximetry 06/21/21 06/21/21 06/21/21 07:34 07:39 07:44 Pulse Rate 76 80 66 Blood Pressure O2 Sat by Pulse 99 98 99 Oximetry 06/21/21 06/21/21 06/21/21 07:49 07:54 07:59 Pulse Rate 70 69 92 H Blood Pressure O2 Sat by Pulse 99 99 99 Oximetry 06/21/21 06/21/21 06/21/21 08:04 08:09 08:14 Pulse Rate 81 73 102 H Blood Pressure O2 Sat by Pulse 97 99 99 Oximetry 06/21/21 06/21/21 06/21/21 08:18 08:19 08:24 Pulse Rate 81 79 93 H Blood Pressure 106/66 O2 Sat by Pulse 100 100 Oximetry 06/21/21 06/21/21 06/21/21 08:29 08:44 08:45 Pulse Rate 88 80 81 Blood Pressure O2 Sat by Pulse 99 99 94 Oximetry 06/21/21 06/21/21 06/21/21 08:49 08:54 08:59 Pulse Rate 77 71 65 Blood Pressure O2 Sat by Pulse 98 98 98 Oximetry 06/21/21 06/21/21 06/21/21 09:04 09:09 09:14 Pulse Rate 67 76 78 Blood Pressure O2 Sat by Pulse 98 98 93 Oximetry 06/21/21 06/21/21 06/21/21 09:19 09:24 09:29 Pulse Rate 93 H 77 88 Blood Pressure O2 Sat by Pulse 97 99 100 Oximetry 06/21/21 06/21/21 06/21/21 09:34 09:39 09:44 Pulse Rate 91 H 80 78 Blood Pressure O2 Sat by Pulse 100 99 97 Oximetry 06/21/21 06/21/21 06/21/21 09:49 09:54 09:59 Pulse Rate 83 77 83 Blood Pressure O2 Sat by Pulse 100 100 99 Oximetry 06/21/21 06/21/21 06/21/21 10:04 10:09 10:14 Pulse Rate 79 81 69 Blood Pressure O2 Sat by Pulse 99 99 99 Oximetry 06/21/21 06/21/21 06/21/21 10:19 10:24 10:33 Pulse Rate 83 80 97 H Blood Pressure O2 Sat by Pulse 98 99 93 Oximetry 06/21/21 06/21/21 06/21/21 10:37 10:38 10:43 Pulse Rate 98 H 87 86 Blood Pressure O2 Sat by Pulse 91 100 100 Oximetry 06/21/21 06/21/21 06/21/21 10:48 10:53 10:58 Pulse Rate 97 H 74 71 Blood Pressure O2 Sat by Pulse 99 99 99 Oximetry 06/21/21 06/21/21 06/21/21 11:03 11:08 11:13 Pulse Rate 71 72 71 Blood Pressure O2 Sat by Pulse 99 98 98 Oximetry 06/21/21 06/21/21 06/21/21 11:18 11:23 11:28 Pulse Rate 76 81 75 Blood Pressure O2 Sat by Pulse 98 98 100 Oximetry 06/21/21 06/21/21 06/21/21 11:33 11:38 11:43 Pulse Rate 70 72 73 Blood Pressure O2 Sat by Pulse 99 99 98 Oximetry 06/21/21 06/21/21 06/21/21 11:48 11:53 11:58 Pulse Rate 69 68 77 Blood Pressure O2 Sat by Pulse 98 100 100 Oximetry 06/21/21 06/21/21 06/21/21 12:03 12:08 12:13 Pulse Rate 81 80 78 Blood Pressure O2 Sat by Pulse 100 100 100 Oximetry 06/21/21 06/21/21 06/21/21 12:18 12:23 12:28 Pulse Rate 74 77 87 Blood Pressure O2 Sat by Pulse 100 99 100 Oximetry 06/21/21 06/21/21 06/21/21 12:30 12:33 12:38 Pulse Rate 94 H 99 H 83 Blood Pressure O2 Sat by Pulse 92 99 99 Oximetry 06/21/21 06/21/21 06/21/21 12:43 12:48 12:53 Pulse Rate 83 78 82 Blood Pressure O2 Sat by Pulse 100 99 98 Oximetry 06/21/21 06/21/21 06/21/21 12:58 13:03 13:08 Pulse Rate 88 87 88 Blood Pressure O2 Sat by Pulse 99 99 98 Oximetry 06/21/21 06/21/21 06/21/21 13:13 13:18 13:28 Pulse Rate 83 82 88 Blood Pressure O2 Sat by Pulse 97 100 98 Oximetry 06/21/21 06/21/21 06/21/21 13:33 13:38 13:43 Pulse Rate 83 79 72 Blood Pressure O2 Sat by Pulse 100 100 99 Oximetry 06/21/21 06/21/21 06/21/21 13:48 13:53 13:58 Pulse Rate 70 69 68 Blood Pressure O2 Sat by Pulse 100 98 99 Oximetry 06/21/21 06/21/21 06/21/21 14:03 14:08 14:13 Pulse Rate 72 67 69 Blood Pressure O2 Sat by Pulse 98 100 100 Oximetry 06/21/21 06/21/21 06/21/21 14:18 14:23 14:28 Pulse Rate 68 75 76 Blood Pressure O2 Sat by Pulse 99 99 100 Oximetry 06/21/21 06/21/21 06/21/21 14:33 14:38 14:43 Pulse Rate 73 68 72 Blood Pressure O2 Sat by Pulse 99 99 98 Oximetry 06/21/21 06/21/21 06/21/21 14:48 14:53 14:58 Pulse Rate 70 69 81 Blood Pressure O2 Sat by Pulse 98 98 99 Oximetry 06/21/21 06/21/21 06/21/21 15:05 15:10 15:15 Pulse Rate 89 67 68 Blood Pressure O2 Sat by Pulse 100 100 99 Oximetry 06/21/21 06/21/21 06/21/21 15:20 15:25 15:30 Pulse Rate 71 69 69 Blood Pressure O2 Sat by Pulse 99 99 99 Oximetry 06/21/21 06/21/21 06/21/21 15:35 15:40 15:45 Pulse Rate 72 69 68 Blood Pressure O2 Sat by Pulse 100 99 98 Oximetry 06/21/21 06/21/21 06/21/21 15:50 15:55 16:00 Pulse Rate 87 79 80 Blood Pressure O2 Sat by Pulse 100 100 100 Oximetry 06/21/21 06/21/21 06/21/21 16:05 16:10 16:15 Pulse Rate 75 75 72 Blood Pressure O2 Sat by Pulse 100 99 99 Oximetry 06/21/21 06/21/21 06/21/21 16:17 16:20 16:25 Pulse Rate 54 L 73 77 Blood Pressure O2 Sat by Pulse 70 L 100 100 Oximetry 06/21/21 06/21/21 06/21/21 16:30 16:35 16:40 Pulse Rate 75 80 99 H Blood Pressure O2 Sat by Pulse 100 100 100 Oximetry 06/21/21 06/21/21 06/21/21 16:45 16:50 17:02 Pulse Rate 86 78 89 Blood Pressure O2 Sat by Pulse 100 100 93 Oximetry 06/21/21 06/21/21 06/21/21 17:07 17:12 17:17 Pulse Rate 70 74 68 Blood Pressure O2 Sat by Pulse 100 98 100 Oximetry 06/21/21 06/21/21 06/21/21 17:22 17:27 17:32 Pulse Rate 64 68 66 Blood Pressure O2 Sat by Pulse 100 99 100 Oximetry 06/21/21 06/21/21 06/21/21 17:37 17:42 17:47 Pulse Rate 84 73 66 Blood Pressure O2 Sat by Pulse 100 99 100 Oximetry 06/21/21 17:52 Pulse Rate 77 Blood Pressure O2 Sat by Pulse 99 Oximetry - Exam Narrative Exam: Discussed with patient plan of care. Cervical exam the same as this AM per RN. head -2 position in front of cervix. Cervix is posterior. Will stop Pitocin, allow patient to eat dinner and then insert Cervidil. Breasts: deferred Cardiovascular: Regular rate Lungs: Normal air movement Abdomen: Present: normal appearance, soft FHR: category 1 Uterine Contraction Monitor Mode: External Cervical Dilatation: 1 (Pt was checked @ around 1700 by RN taking care of patient.) Cervical Effacement Percentage: 40 station: -2 Uterine Contraction Pattern: Irregular Uterine Tone Measurement Phase: Resting Uterine Contraction Intensity: Mild - Labs Labs: Abnormal Labs 06/20/21 22:00 RBC 3.56 L Laboratory Results - last 24 hr 06/20/21 06/20/21 06/20/21 22:00 22:00 22:00 WBC 6.4 RBC 3.56 L Hgb 11.4 Hct 33.9 MCV 95 MCH 32 MCHC 34 RDW 13.5 Plt Count 169 Syphilis IgG Antibody Nonreactive Coronavirus (PCR) Blood Type A POSITIVE Antibody Screen Negative 06/21/21 Unknown WBC RBC Hgb Hct MCV MCH MCHC RDW Plt Count Syphilis IgG Antibody Coronavirus (PCR) Negative Blood Type Antibody Screen
[2021-06-21] MEDS ORDERED: DINOPROSTONE 10 MG VAG SUPP VG ONE (19:00)
[2021-06-22] MEDS: NalbUPHINE 10 MG/1 ML INJ IV PRN ×2 (05:28→05:47)
[2021-06-22] MEDS ORDERED: AMPICILLIN/NS 2 GM/100 ML 2 GM/100 ML BAG IV ONE (08:19)
--- NOTE | 2021-06-22 08:21 | Progress Note ---
Assessment and Plan 20 yo female @38.3 wks IOL for IUGR. Cervidil removed, SVE 1.5/50/0, Cooks catheter placed, 60 ml inner balloon and 60ml outer balloon, PT tolerated well. Pt to shower and eat breakfast if FHT CAT 1, epidural PRN. Patient labor stable. - Patient Problems (1) 38 weeks gestation of Current Visit: Yes Status: Acute (2) GBS (group B Streptococcus carrier), +RV culture, currently Current Visit: Yes Status: Acute Plan to address problem: amp q 4hrs when closer to active labor (3) IUGR (intrauterine growth restriction) Current Visit: Yes Status: Acute Plan to address problem: close monitoring of FHT Subjective - Subjective Date of service: 06/22/21 Principal diagnosis: IOL d/t IUGR @ 38.3 wks Interval history: EDC Confirmation: 07/03/2021 Past History : 1 Term Births: 0 Premature Births: 0 Living Children: 0 Para: 0 Mult. Births: 0 Prev : 0 Aborta: 0 Elect. Ab: 0 Spont. Ab: 0 Ectopics: 0 Risk Factors: Smoked Tobacco Use: Never smoker Smokeless Tobacco Use: Never Passive smoke exposure: no Drug use: no HIV high-risk behavior: no Caffeine use: 0 drinks per day Alcohol use: no Exercise: no Seatbelt use: 100 % Family History Risk Factors: Family History of [place] in females < 65 years old: no Family History of [place] in males < 55 years old: yes Dietary Counseling: pn yes Family History Summary: MGM - Has Family History of Lung Cancer - Entered On: 01/03/2021 Father - Has Family History of Hypertension - Entered On: 01/03/2021 Past Medical History: UTI's Recurrent 3-4 times/yr since 2018 Seizure x1 at 1 yr old and never had one ever again, no meds, no current specialist Past Surgical History: negative Past Medical History Anesthesia Complications: negative Anemia: negative Autoimmune Disorder: negative Bleeding Disorder: negative Blood Transfusions: negative Breast Disease: negative Diabetes: negative Heart Disease: negative Hypertension: negative Hepatitis/Liver Disease: negative Kidney Disease/UTI: negative Neurologic/Epilepsy/Migraines: negative Phlebitis/Varicosities: negative Psychiatric: negative Pulmonary Disease/Asthma: negative Thyroid Disease: negative Hospitalizations: negative Surgery (Non-middle school teacher): negative Abnormal PAP: negative CELSA Exposure: negative Infertility: negative Uterine Anomaly: negative Uterine Surgery (not C/S): negative Other Gynecologic Problems: negative Infection History Hx of STD: gonorrhea HIV Risk Eval: no Hepatitis B Risk Eval: low risk Personal hx. of genital herpes: no Partner hx. of genital herpes: no Rash, Viral, or Febrile illness since last LMP? no Varicella/Chicken Pox Status: Immunized TB Risk: no Genetic History Congenital Heart Defect: Mom: no Dad: no Cristal Disease: Mom: no Dad: no Thalassemia Mom: no Dad: no Neural Tube Defect Mom: no Dad: no Down's Syndrome Mom: no Dad: no Umesh-Sachs Mom: no Dad: no Sickle Cell Disease/Trait Mom: no Dad: no Hemophilia Mom: no Dad: no Muscular Dystrophy Mom: no Dad: no Cystic Fibrosis Mom: no Dad: no [place] Chorea Mom: no Dad: no Mental Retardation Mom: no Dad: no Fragile X Mom: no Dad: no Other Genetic/Chromosomal Disorder Mom: no Dad: no Child w/other defect Mom: no Dad: no Enviromental Exposures Enviromental Exposures Reviewed Xray Exposure: no Medication, drug, or alcohol use since LMP: no Chemical/Other Exposure: no Exposure to Cat Liter: no Hx of Parvovirus (Fifth Disease): no Occupational Exposure to Children: none Current Allergies (reviewed today): No known allergies Patient reports: new complaints, movement normal, contractions, no loss of fluid, no vaginal bleeding Objective - Vital Signs Vital Signs: Vital Signs - 12hr 06/21/21 06/21/21 06/21/21 20:19 20:23 20:29 Pulse Rate 85 94 H 88 Blood Pressure O2 Sat by Pulse 100 99 100 Oximetry 06/21/21 06/21/21 06/21/21 20:34 20:39 20:44 Pulse Rate 79 80 85 Blood Pressure O2 Sat by Pulse 100 98 99 Oximetry 06/21/21 06/21/21 06/21/21 20:49 20:54 20:59 Pulse Rate 91 H 91 H 82 Blood Pressure O2 Sat by Pulse 100 100 100 Oximetry 06/21/21 06/21/21 06/21/21 21:04 21:09 21:14 Pulse Rate 76 72 73 Blood Pressure O2 Sat by Pulse 100 100 100 Oximetry 06/21/21 06/21/21 06/21/21 21:19 21:24 21:29 Pulse Rate 76 72 73 Blood Pressure O2 Sat by Pulse 99 100 99 Oximetry 06/21/21 06/21/21 06/21/21 21:34 21:39 21:44 Pulse Rate 77 75 89 Blood Pressure O2 Sat by Pulse 99 100 100 Oximetry 06/21/21 06/21/21 06/21/21 21:48 21:54 21:59 Pulse Rate 80 83 77 Blood Pressure O2 Sat by Pulse 100 99 99 Oximetry 06/21/21 06/21/21 06/21/21 22:04 22:09 22:13 Pulse Rate 78 79 90 Blood Pressure O2 Sat by Pulse 100 100 100 Oximetry 06/21/21 06/21/21 06/21/21 22:19 22:24 22:29 Pulse Rate 73 84 80 Blood Pressure O2 Sat by Pulse 99 100 100 Oximetry 06/21/21 06/21/21 06/21/21 22:34 22:39 22:44 Pulse Rate 79 77 70 Blood Pressure O2 Sat by Pulse 100 100 100 Oximetry 06/21/21 06/21/21 06/21/21 22:49 22:54 22:59 Pulse Rate 73 65 72 Blood Pressure O2 Sat by Pulse 98 98 98 Oximetry 06/21/21 06/21/21 06/21/21 23:04 23:09 23:12 Pulse Rate 78 87 83 Blood Pressure O2 Sat by Pulse 98 99 91 Oximetry 06/21/21 06/21/21 06/21/21 23:32 23:36 23:38 Pulse Rate 68 83 91 H Blood Pressure O2 Sat by Pulse 98 100 91 Oximetry 06/21/21 06/21/21 06/21/21 23:42 23:47 23:50 Pulse Rate 75 80 78 Blood Pressure O2 Sat by Pulse 100 100 93 Oximetry 06/21/21 06/21/21 06/22/21 23:52 23:57 00:02 Pulse Rate 65 75 71 Blood Pressure O2 Sat by Pulse 100 100 100 Oximetry 06/22/21 06/22/21 06/22/21 00:07 00:12 00:17 Pulse Rate 64 69 69 Blood Pressure O2 Sat by Pulse 100 99 98 Oximetry 06/22/21 06/22/21 06/22/21 00:22 00:27 00:32 Pulse Rate 72 68 66 Blood Pressure O2 Sat by Pulse 98 98 98 Oximetry 06/22/21 06/22/21 06/22/21 00:37 00:42 00:47 Pulse Rate 67 61 66 Blood Pressure O2 Sat by Pulse 100 100 99 Oximetry 06/22/21 06/22/21 06/22/21 00:52 00:54 00:57 Pulse Rate 66 49 L 70 Blood Pressure O2 Sat by Pulse 100 91 99 Oximetry 06/22/21 06/22/21 06/22/21 01:02 01:07 01:12 Pulse Rate 68 57 L 65 Blood Pressure O2 Sat by Pulse 100 100 100 Oximetry 06/22/21 06/22/21 06/22/21 01:17 01:22 01:27 Pulse Rate 91 H 61 63 Blood Pressure O2 Sat by Pulse 99 100 99 Oximetry 06/22/21 06/22/21 06/22/21 01:32 01:37 01:42 Pulse Rate 69 78 63 Blood Pressure O2 Sat by Pulse 99 98 100 Oximetry 06/22/21 06/22/21 06/22/21 01:47 01:52 01:57 Pulse Rate 59 L 63 70 Blood Pressure O2 Sat by Pulse 100 99 99 Oximetry 06/22/21 06/22/21 06/22/21 02:02 02:19 02:24 Pulse Rate 71 85 63 Blood Pressure 100/56 O2 Sat by Pulse 100 85 100 Oximetry 06/22/21 06/22/21 06/22/21 02:29 02:31 02:34 Pulse Rate 59 L 66 60 Blood Pressure O2 Sat by Pulse 100 91 100 Oximetry 06/22/21 06/22/21 06/22/21 02:39 02:44 02:48 Pulse Rate 67 63 59 L Blood Pressure O2 Sat by Pulse 100 100 89 Oximetry 06/22/21 06/22/21 06/22/21 02:49 02:54 02:58 Pulse Rate 64 62 59 L Blood Pressure O2 Sat by Pulse 100 100 92 Oximetry 06/22/21 06/22/21 06/22/21 02:59 03:04 03:09 Pulse Rate 64 57 L 73 Blood Pressure 95/53 O2 Sat by Pulse 100 100 100 Oximetry 06/22/21 06/22/21 06/22/21 03:12 03:14 03:19 Pulse Rate 68 67 62 Blood Pressure O2 Sat by Pulse 82 L 100 100 Oximetry 06/22/21 06/22/21 06/22/21 03:24 03:29 03:34 Pulse Rate 66 67 60 Blood Pressure O2 Sat by Pulse 100 100 99 Oximetry 06/22/21 06/22/21 06/22/21 03:39 03:44 03:49 Pulse Rate 65 70 69 Blood Pressure O2 Sat by Pulse 100 99 99 Oximetry 06/22/21 06/22/21 06/22/21 03:54 03:59 04:04 Pulse Rate 68 69 84 Blood Pressure 118/70 O2 Sat by Pulse 99 99 100 Oximetry 06/22/21 06/22/21 06/22/21 04:09 04:14 04:19 Pulse Rate 82 77 66 Blood Pressure O2 Sat by Pulse 100 100 100 Oximetry 06/22/21 06/22/21 06/22/21 04:24 04:29 04:34 Pulse Rate 68 63 71 Blood Pressure O2 Sat by Pulse 100 100 100 Oximetry 06/22/21 06/22/21 06/22/21 04:39 04:44 04:49 Pulse Rate 75 70 67 Blood Pressure O2 Sat by Pulse 100 100 100 Oximetry 06/22/21 06/22/21 06/22/21 04:54 04:59 05:04 Pulse Rate 79 67 68 Blood Pressure O2 Sat by Pulse 100 100 100 Oximetry 06/22/21 06/22/21 06/22/21 05:05 05:09 05:14 Pulse Rate 72 79 75 Blood Pressure 110/68 O2 Sat by Pulse 100 100 Oximetry 06/22/21 06/22/21 05:19 08:05 Pulse Rate 84 73 Blood Pressure 117/71 O2 Sat by Pulse 100 Oximetry - Exam Breasts: normal Lungs: Normal air movement Abdomen: Present: normal appearance, soft Vulva: both: normal Uterus: Present: normal FHR: auscultation normal, category 1 Uterine Contraction Monitor Mode: External Cervical Dilatation: 1.5 Cervical Effacement Percentage: 50 station: 0 Uterine Contraction Pattern: Regular Uterine Contraction Intensity: Moderate Extremities: normal - Labs Labs: Abnormal Labs 06/20/21 22:00 RBC 3.56 L Laboratory Results - last 24 hr 06/21/21 Unknown Coronavirus (PCR) Negative
[2021-06-22] MEDS ORDERED: BUTORPHANOL 2 MG/1 ML INJ ONE (08:46)
[2021-06-22] MEDS ORDERED: OXYTOCIN DRIP 30 UNITS/500 ML BAG IV SCH (10:00)
[2021-06-22] MEDS: LACTATED RINGERS 1,000 ML IV SCH ×2 (11:08→16:21)
[2021-06-22] MEDS ORDERED: AMPICILLIN/NS 1 GM/50 ML 1 GM/50 ML BAG IV SCH (12:00)
--- NOTE | 2021-06-22 13:16 | Anesthesia Consultation ---
Anesthesia Consult and Med Hx Date of service: 06/22/21 - Airway Anesthetic Teeth Evaluation: Good ROM Head & Neck: Adequate Mental/Hyoid Distance: Adequate Mallampati Class: Class II Intubation Access Assessment: Probably Good - Pulmonary Exam CTA: Yes - Cardiac Exam Cardiac Exam: RRR - Pre-Operative Health Status ASA Pre-Surgery Classification: ASA2 Proposed Anesthetic Plan: Epidural - Pulmonary Hx Asthma: No - Cardiovascular System Hx Hypertension: No - Central Nervous System Hx Psychiatric Problems: No - Endocrine Hx Renal Disease: No Hx Hypothyroidism: No Hx Hyperthyroidism: No - Hematic Hx Anemia: No Hx Sickle Cell Disease: No - Other Systems Hx Alcohol Use: No
--- NOTE | 2021-06-22 13:24 | Event Note ---
Date: 06/22/21 Pt sitting on edge of bed w/ RN at bedside prepping abd for wireless monitor. Pt is requesting epidural, tolerating contractions well. Contractions regular and palpate moderate, Cooks catheter assessed and easily came out w/ mild traction. Pt tolerated well, will perform SVE PRN. All questions addressed, will reassess PRN.
[2021-06-22] MEDS ORDERED: AMPICILLIN/NS 2 GM/100 ML 0 GM/0 ML BAG IV ONE (13:40)
--- NOTE | 2021-06-22 13:43 | Progress Note ---
Labor Epidural - Labor Epidural Start Time: 13:24 Stop Time: 13:35 Performed by:: ZEE GILLETTE Procedure: Patient is requesting epidural for labor pain. H&P, and labs reviewed. Procedure explained, questions answered, consent obtained. Patient in sitting position with blood pressure cuff and pulse ox on and working. Timeout performed immediately before start of procedure. Sterile chlorahexadine 0.5% prep/drape. 5 mL 1% lidocaine skin wheal at L[3]-L[4]. 17-gauge tuohy epidural needle advanced to [id number] with saline at [7] cm. Epidural dexmedetomidine 25 mcg administered. Epidural catheter advanced to [12] cm, negative aspiration for blood and csf, negative test dose 3 ml 1.5% lidocaine with epinephrine. Sterile sponge and tegaderm applied, followed by tape reinforcement. Patient tolerated procedure well.
[2021-06-22] MEDS ORDERED: NALOXONE 2 MG/2 ML INJ IV PRN (14:00)
[2021-06-22] MEDS ORDERED: ePHEDrine SULFATE 50 MG/1 ML INJ IV PRN (14:00)
[2021-06-22] MEDS ORDERED: fentaNYL-BUPIV 2 MCG/ML-0.125% 200 MCG/100 ML BAG EPIDURAL SCH (14:00)
[2021-06-22] MEDS ORDERED: ePHEDrine SULFATE 50 MG/1 ML INJ ONE (15:49)
--- NOTE | 2021-06-22 16:06 | Progress Note ---
Assessment and Plan RNs called w/ report of FHT baseline 105 w/ decelerations and moderate variability s/p epidural replacement. FHT noted in room to 105, moderate w/ early decelerations. SVE performed, /+1. FHT reponded well to SVE w/ acceleration. FHT have resolved to Cat 1 w/ 115 baseline. Pt repositioned to left lateral, comfortable w/ epidural, will reassess PRN. - Patient Problems (1) 38 weeks gestation of Current Visit: Yes Status: Acute (2) GBS (group B Streptococcus carrier), +RV culture, currently Current Visit: Yes Status: Acute (3) IUGR (intrauterine growth restriction) Current Visit: Yes Status: Acute Subjective - Subjective Date of service: 06/22/21 Principal diagnosis: IOL d/t IUGR @ 38.3 wks Interval history: EDC Confirmation: 07/03/2021 Past History : 1 Term Births: 0 Premature Births: 0 Living Children: 0 Para: 0 Mult. Births: 0 Prev : 0 Aborta: 0 Elect. Ab: 0 Spont. Ab: 0 Ectopics: 0 Risk Factors: Smoked Tobacco Use: Never smoker Smokeless Tobacco Use: Never Passive smoke exposure: no Drug use: no HIV high-risk behavior: no Caffeine use: 0 drinks per day Alcohol use: no Exercise: no Seatbelt use: 100 % Family History Risk Factors: Family History of [place] in females < 65 years old: no Family History of [place] in males < 55 years old: yes Dietary Counseling: pn yes Family History Summary: MGM - Has Family History of Lung Cancer - Entered On: 01/03/2021 Father - Has Family History of Hypertension - Entered On: 01/03/2021 Past Medical History: UTI's Recurrent 3-4 times/yr since 2018 Seizure x1 at 1 yr old and never had one ever again, no meds, no current specialist Past Surgical History: negative Past Medical History Anesthesia Complications: negative Anemia: negative Autoimmune Disorder: negative Bleeding Disorder: negative Blood Transfusions: negative Breast Disease: negative Diabetes: negative Heart Disease: negative Hypertension: negative Hepatitis/Liver Disease: negative Kidney Disease/UTI: negative Neurologic/Epilepsy/Migraines: negative Phlebitis/Varicosities: negative Psychiatric: negative Pulmonary Disease/Asthma: negative Thyroid Disease: negative Hospitalizations: negative 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 of genital herpes: no Partner hx. of genital herpes: no Rash, Viral, or Febrile illness since last LMP? no Varicella/Chicken Pox Status: Immunized TB Risk: no Genetic History Congenital Heart Defect: Mom: no Dad: no Cristal Disease: Mom: no Dad: no Thalassemia Mom: no Dad: no Neural Tube Defect Mom: no Dad: no Down's Syndrome Mom: no Dad: no Umesh-Sachs Mom: no Dad: no Sickle Cell Disease/Trait Mom: no Dad: no Hemophilia Mom: no Dad: no Muscular Dystrophy Mom: no Dad: no Cystic Fibrosis Mom: no Dad: no [place] Chorea Mom: no Dad: no Mental Retardation Mom: no Dad: no Fragile X Mom: no Dad: no Other Genetic/Chromosomal Disorder Mom: no Dad: no Child w/other defect Mom: no Dad: no Enviromental Exposures Enviromental Exposures Reviewed Xray Exposure: no Medication, drug, or alcohol use since LMP: no Chemical/Other Exposure: no Exposure to Cat Liter: no Hx of Parvovirus (Fifth Disease): no Occupational Exposure to Children: none Current Allergies (reviewed today): No known allergies Patient reports: new complaints, no loss of fluid, no vaginal bleeding, no contractions Objective - Vital Signs Vital Signs: Vital Signs - 12hr 06/22/21 06/22/21 06/22/21 04:04 04:09 04:14 Pulse Rate 84 82 77 Blood Pressure 118/70 O2 Sat by Pulse 100 100 100 Oximetry O2 Sat by Pulse Oximetry [ Bilateral Throughout] 06/22/21 06/22/21 06/22/21 04:19 04:24 04:29 Pulse Rate 66 68 63 Blood Pressure O2 Sat by Pulse 100 100 100 Oximetry O2 Sat by Pulse Oximetry [ Bilateral Throughout] 06/22/21 06/22/21 06/22/21 04:34 04:39 04:44 Pulse Rate 71 75 70 Blood Pressure O2 Sat by Pulse 100 100 100 Oximetry O2 Sat by Pulse Oximetry [ Bilateral Throughout] 06/22/21 06/22/21 06/22/21 04:49 04:54 04:59 Pulse Rate 67 79 67 Blood Pressure O2 Sat by Pulse 100 100 100 Oximetry O2 Sat by Pulse Oximetry [ Bilateral Throughout] 06/22/21 06/22/21 06/22/21 05:04 05:05 05:09 Pulse Rate 68 72 79 Blood Pressure 110/68 O2 Sat by Pulse 100 100 Oximetry O2 Sat by Pulse Oximetry [ Bilateral Throughout] 06/22/21 06/22/21 06/22/21 05:14 05:19 08:05 Pulse Rate 75 84 73 Blood Pressure 117/71 O2 Sat by Pulse 100 100 Oximetry O2 Sat by Pulse Oximetry [ Bilateral Throughout] 06/22/21 06/22/21 06/22/21 08:18 08:30 08:35 Pulse Rate 97 H 78 Blood Pressure O2 Sat by Pulse 99 73 L Oximetry O2 Sat by Pulse 98 Oximetry [ Bilateral Throughout] 06/22/21 06/22/21 06/22/21 08:40 08:45 08:47 Pulse Rate 84 77 70 Blood Pressure O2 Sat by Pulse 100 100 91 Oximetry O2 Sat by Pulse Oximetry [ Bilateral Throughout] 06/22/21 06/22/21 06/22/21 08:50 08:54 08:55 Pulse Rate 74 71 74 Blood Pressure 124/85 O2 Sat by Pulse 100 100 Oximetry O2 Sat by Pulse Oximetry [ Bilateral Throughout] 06/22/21 06/22/21 06/22/21 09:00 09:04 09:05 Pulse Rate 75 66 68 Blood Pressure 125/83 O2 Sat by Pulse 100 100 Oximetry O2 Sat by Pulse Oximetry [ Bilateral Throughout] 06/22/21 06/22/21 06/22/21 09:10 09:15 09:20 Pulse Rate 73 67 68 Blood Pressure O2 Sat by Pulse 99 100 98 Oximetry O2 Sat by Pulse Oximetry [ Bilateral Throughout] 06/22/21 06/22/21 06/22/21 09:25 09:30 09:35 Pulse Rate 82 70 81 Blood Pressure O2 Sat by Pulse 100 100 100 Oximetry O2 Sat by Pulse Oximetry [ Bilateral Throughout] 06/22/21 06/22/21 06/22/21 09:40 09:45 09:50 Pulse Rate 68 69 74 Blood Pressure O2 Sat by Pulse 99 99 100 Oximetry O2 Sat by Pulse Oximetry [ Bilateral Throughout] 06/22/21 06/22/21 06/22/21 09:59 10:00 10:04 Pulse Rate 79 86 73 Blood Pressure 114/71 O2 Sat by Pulse 89 97 Oximetry O2 Sat by Pulse Oximetry [ Bilateral Throughout] 06/22/21 06/22/21 06/22/21 10:05 10:10 10:15 Pulse Rate 77 84 64 Blood Pressure O2 Sat by Pulse 100 99 100 Oximetry O2 Sat by Pulse Oximetry [ Bilateral Throughout] 06/22/21 06/22/21 06/22/21 10:20 10:25 10:30 Pulse Rate 74 64 64 Blood Pressure O2 Sat by Pulse 100 100 100 Oximetry O2 Sat by Pulse Oximetry [ Bilateral Throughout] 06/22/21 06/22/21 06/22/21 10:35 10:40 10:45 Pulse Rate 66 72 67 Blood Pressure O2 Sat by Pulse 100 100 98 Oximetry O2 Sat by Pulse Oximetry [ Bilateral Throughout] 06/22/21 06/22/21 06/22/21 10:50 10:55 11:00 Pulse Rate 73 72 69 Blood Pressure O2 Sat by Pulse 100 100 100 Oximetry O2 Sat by Pulse Oximetry [ Bilateral Throughout] 06/22/21 06/22/21 06/22/21 11:05 11:10 11:15 Pulse Rate 63 69 70 Blood Pressure 120/71 O2 Sat by Pulse 100 98 100 Oximetry O2 Sat by Pulse Oximetry [ Bilateral Throughout] 06/22/21 06/22/21 06/22/21 11:20 11:25 11:30 Pulse Rate 64 66 66 Blood Pressure O2 Sat by Pulse 98 99 99 Oximetry O2 Sat by Pulse Oximetry [ Bilateral Throughout] 06/22/21 06/22/21 06/22/21 11:35 11:40 11:45 Pulse Rate 66 64 76 Blood Pressure O2 Sat by Pulse 99 99 99 Oximetry O2 Sat by Pulse Oximetry [ Bilateral Throughout] 06/22/21 06/22/21 06/22/21 11:50 11:55 12:00 Pulse Rate 69 68 75 Blood Pressure O2 Sat by Pulse 99 99 99 Oximetry O2 Sat by Pulse Oximetry [ Bilateral Throughout] 06/22/21 06/22/21 06/22/21 12:05 12:06 12:10 Pulse Rate 67 77 66 Blood Pressure 120/71 O2 Sat by Pulse 100 100 Oximetry O2 Sat by Pulse Oximetry [ Bilateral Throughout] 06/22/21 06/22/21 06/22/21 13:22 13:23 13:28 Pulse Rate 79 104 H 74 Blood Pressure O2 Sat by Pulse 92 100 75 L Oximetry O2 Sat by Pulse Oximetry [ Bilateral Throughout] 06/22/21 06/22/21 06/22/21 13:33 13:37 13:38 Pulse Rate 73 72 74 Blood Pressure 115/64 O2 Sat by Pulse 100 100 Oximetry O2 Sat by Pulse Oximetry [ Bilateral Throughout] 06/22/21 06/22/21 06/22/21 13:43 13:48 13:53 Pulse Rate 96 H 71 75 Blood Pressure O2 Sat by Pulse 100 100 100 Oximetry O2 Sat by Pulse Oximetry [ Bilateral Throughout] 06/22/21 06/22/21 06/22/21 13:58 14:03 14:04 Pulse Rate 82 80 70 Blood Pressure 119/72 O2 Sat by Pulse 100 99 Oximetry O2 Sat by Pulse Oximetry [ Bilateral Throughout] 06/22/21 06/22/21 06/22/21 14:08 14:13 14:18 Pulse Rate 66 72 83 Blood Pressure O2 Sat by Pulse 87 99 100 Oximetry O2 Sat by Pulse Oximetry [ Bilateral Throughout] 06/22/21 06/22/21 06/22/21 14:19 14:23 14:26 Pulse Rate 83 80 93 H Blood Pressure O2 Sat by Pulse 93 100 86 Oximetry O2 Sat by Pulse Oximetry [ Bilateral Throughout] 06/22/21 06/22/21 06/22/21 14:28 14:33 14:38 Pulse Rate 71 84 84 Blood Pressure O2 Sat by Pulse 99 100 90 Oximetry O2 Sat by Pulse Oximetry [ Bilateral Throughout] 06/22/21 06/22/21 06/22/21 14:43 14:48 14:53 Pulse Rate 67 67 68 Blood Pressure O2 Sat by Pulse 100 100 100 Oximetry O2 Sat by Pulse Oximetry [ Bilateral Throughout] 06/22/21 06/22/21 06/22/21 14:58 15:03 15:04 Pulse Rate 71 31 L 63 Blood Pressure 103/57 O2 Sat by Pulse 100 100 Oximetry O2 Sat by Pulse Oximetry [ Bilateral Throughout] 06/22/21 06/22/21 06/22/21 15:08 15:13 15:18 Pulse Rate 71 72 65 Blood Pressure O2 Sat by Pulse 100 100 100 Oximetry O2 Sat by Pulse Oximetry [ Bilateral Throughout] 06/22/21 06/22/21 06/22/21 15:23 15:28 15:33 Pulse Rate 69 85 72 Blood Pressure O2 Sat by Pulse 100 98 100 Oximetry O2 Sat by Pulse Oximetry [ Bilateral Throughout] 06/22/21 06/22/21 06/22/21 15:38 15:43 15:48 Pulse Rate 68 65 66 Blood Pressure O2 Sat by Pulse 100 100 100 Oximetry O2 Sat by Pulse Oximetry [ Bilateral Throughout] 06/22/21 06/22/21 06/22/21 15:51 15:53 15:55 Pulse Rate 63 70 57 L Blood Pressure 122/77 119/65 O2 Sat by Pulse 100 Oximetry O2 Sat by Pulse Oximetry [ Bilateral Throughout] 06/22/21 06/22/21 15:57 15:58 Pulse Rate 67 64 Blood Pressure 148/82 O2 Sat by Pulse 100 Oximetry O2 Sat by Pulse Oximetry [ Bilateral Throughout] - Exam Breasts: normal Lungs: Normal air movement Abdomen: Present: normal appearance, soft Vulva: both: normal Uterus: Present: normal FHR: category 2 Uterine Contraction Monitor Mode: External Cervical Dilatation: 8 Cervical Effacement Percentage: 90 station: 1 Uterine Contraction Frequency (min): 3-5 Uterine Contraction Pattern: Regular Uterine Tone Measurement Phase: Contraction Uterine Contraction Intensity: Moderate Extremities: normal - Labs Labs: Abnormal Labs 06/20/21 22:00 RBC 3.56 L
--- NOTE | 2021-06-22 17:19 | Procedure Note ---
OB Delivery Note - Delivery Date of Delivery: 06/22/21 Chief Scientist: KRISTA DE LEON (Alicia Chaudhary [facility] ) Estimated blood loss: 100cc - Vaginal Delivery presentation: vertex Delivery position: OA Intrapartum events: none Delivery induction: other (Cooks Catheter and Cervidil) Delivery augmentation: rupture of membranes, pitocin Delivery monitor: external FHT, external uterine Route of delivery: Delivery placenta: spontaneous Delivery cord: 3 umbilical vessels Episiotomy: none Delivery laceration: none Anesthesia: epidural Delivery comments: Male infant birthed over intact perineum, placed to maternal abd. Cord clamped and cut after cessation of pulse. Placenta spontaneously birthed and intact, pit infusing. No lacerations. Time of 1703, Apgars 9/9, weight 6#. All counts correct. Mother and LDR stable. - A at 1 minute: 9 (Kapri, 6#) at 5 minutes: 9 Infant Gender: Male (Kapri, 6#)
[2021-06-22] MEDS ORDERED: PROMETHAZINE 25 MG TAB PO PRN (17:39)
[2021-06-22] MEDS ORDERED: WITCH HAZEL/ GLYCERIN PAD TP PRN (17:39)
[2021-06-22] MEDS ORDERED: ACETAMINOPHEN 325 MG TAB PO PRN (17:39)
[2021-06-22] MEDS ORDERED: diphenhydrAMINE 25 MG CAP PO PRN (17:39)
[2021-06-22] MEDS ORDERED: PROMETHAZINE 25 MG RECT SUPP PR PRN (17:39)
[2021-06-22] MEDS ORDERED: BENZOCAINE/MENTHOL 20/0.5% TOP SPRAY 56 GM TP PRN (17:39)
[2021-06-22] MEDS ORDERED: ONDANSETRON 4 MG/2 ML INJ IV PRN (17:39)
[2021-06-22] MEDS ORDERED: LANOLIN/ZINC/DIMETHICONE (LANSINOH) 7 GM TP PRN (17:39)
[2021-06-22] MEDS ORDERED: MAGNESIUM HYDROXIDE (MOM) ORAL LIQD UDC PO PRN (17:39)
[2021-06-22] MEDS ORDERED: IBUPROFEN 600 MG TAB PO SCH (18:00)
[2021-06-22] MEDS: DOCUSATE SODIUM 100 MG CAP PO SCH (22:27)
[2021-06-23] MEDS: IBUPROFEN 800 MG TAB PO SCH ×3 (08:10→18:08)
[2021-06-23 09:26] LABS: Hematocrit 31.7 % (30.3-42.9); Hemoglobin 10.7 gm/dl (10.1-14.3)
--- NOTE | 2021-06-23 09:45 | Progress Note ---
Assessment and Plan A: 20 y.o. s/p , now with c/o chest pain, pressure, and shortness of breath. P: Obtain chest x-ray, and CMP. Continue to monitor patient closely. Continue with care. Anticipate discharge home in AM. Subjective - Subjective Date of service: 06/23/21 Principal diagnosis: s/p , chest pressure and shortness of breath Patient reports: appetite normal, voiding normally, pain well controlled [place]: doing well Objective - Vital Signs Latest vital signs: Vital Signs Temp Pulse Resp BP BP Pulse Ox Pulse Ox 06/23/21 07:40 98.4 F 92 H 18 95/68 97 06/23/21 04:27 99.3 F 86 16 115/66 97 06/23/21 04:10 18 06/23/21 03:10 18 06/22/21 23:42 98.8 F 95 H 16 103/69 100 06/22/21 19:42 97.6 F 50 L 16 113/77 100 06/22/21 19:39 98.0 F 61 19 122/73 98 06/22/21 19:30 98 06/22/21 18:10 60 100 06/22/21 18:05 53 L 111/58 100 06/22/21 17:59 51 L 100 06/22/21 17:58 61 91 06/22/21 17:54 59 L 99 06/22/21 17:49 59 L 129/83 99 06/22/21 17:44 60 98 06/22/21 17:39 67 99 06/22/21 17:35 65 113/76 06/22/21 17:34 67 98 06/22/21 17:29 66 99 06/22/21 17:24 70 99 06/22/21 17:19 78 113/61 99 06/22/21 17:15 98.3 F 06/22/21 17:08 75 111/69 100 06/22/21 17:04 107 H 113/66 06/22/21 17:03 115 H 99 06/22/21 16:59 82 117/59 06/22/21 16:58 68 100 06/22/21 16:54 64 120/57 06/22/21 16:53 78 98 06/22/21 16:48 76 100 06/22/21 16:43 79 100 06/22/21 16:38 67 128/73 100 06/22/21 16:33 70 100 06/22/21 16:28 73 100 06/22/21 16:23 66 100 06/22/21 16:19 64 117/74 06/22/21 16:18 64 100 06/22/21 16:13 64 100 06/22/21 16:08 62 100 06/22/21 16:04 63 120/75 06/22/21 16:03 75 100 06/22/21 16:02 66 122/78 06/22/21 15:58 64 100 06/22/21 15:57 67 148/82 06/22/21 15:55 57 L 119/65 06/22/21 15:53 70 100 06/22/21 15:51 63 122/77 06/22/21 15:48 66 100 06/22/21 15:43 65 100 06/22/21 15:38 68 100 06/22/21 15:33 72 100 06/22/21 15:28 85 98 06/22/21 15:23 69 100 06/22/21 15:18 65 100 06/22/21 15:13 72 100 06/22/21 15:08 71 100 06/22/21 15:04 63 103/57 06/22/21 15:03 31 L 100 06/22/21 14:58 71 100 06/22/21 14:53 68 100 06/22/21 14:48 67 100 06/22/21 14:43 67 100 06/22/21 14:38 84 90 06/22/21 14:33 84 100 06/22/21 14:28 71 99 06/22/21 14:26 93 H 86 06/22/21 14:23 80 100 06/22/21 14:19 83 93 06/22/21 14:18 83 100 06/22/21 14:13 72 99 06/22/21 14:08 66 87 06/22/21 14:04 70 119/72 06/22/21 14:03 80 99 06/22/21 13:58 82 100 06/22/21 13:53 75 100 06/22/21 13:48 71 100 06/22/21 13:43 96 H 100 06/22/21 13:38 74 100 06/22/21 13:37 72 115/64 06/22/21 13:33 73 100 06/22/21 13:28 74 75 L 06/22/21 13:23 104 H 100 06/22/21 13:22 79 92 06/22/21 12:10 66 100 06/22/21 12:06 77 120/71 06/22/21 12:05 67 100 06/22/21 12:00 75 99 06/22/21 11:55 68 99 06/22/21 11:50 69 99 06/22/21 11:45 76 99 06/22/21 11:40 64 99 06/22/21 11:35 66 99 06/22/21 11:30 66 99 06/22/21 11:25 66 99 06/22/21 11:20 64 98 06/22/21 11:15 70 100 06/22/21 11:10 69 98 06/22/21 11:05 63 120/71 100 06/22/21 11:00 69 100 06/22/21 10:55 72 100 06/22/21 10:50 73 100 06/22/21 10:45 67 98 06/22/21 10:40 72 100 06/22/21 10:35 66 100 06/22/21 10:30 64 100 06/22/21 10:25 64 100 06/22/21 10:20 74 100 06/22/21 10:15 64 100 06/22/21 10:10 84 99 06/22/21 10:05 77 100 06/22/21 10:04 73 114/71 06/22/21 10:00 86 97 06/22/21 09:59 79 89 06/22/21 09:50 74 100 06/22/21 09:45 69 99 06/22/21 09:40 68 99 Intake and Output 06/22/21 06/23/21 06/23/21 22:59 06:59 14:59 Intake Total 656.283 Output Total 1700 Balance -1043.717 Intake: IV 656.283 Lactated Ringers 1,000 ml 652.083 @ 125 mls/hr IV DIRECT NAVNEET Rx#:[id number] PITOCin/NS 30 UNIT/500ML 4.2 30 units In 500 ml @ 40 mls/hr IV TITR NAVNEET Rx#: [id number] Output: Urine 1700 Indwelling Catheter 1700 Other: Total, Output Amount 1700 # Voids Indwelling Catheter 3 Estimated Blood Loss 100 - Exam Narrative Exam: Per RN pt with c/o chest pain, pressure, and shortness of breath. Upon assessment and questioning, when asked to point to where the pain and pressure was, pt pointed to her abdomen. Consulted with Dr. Perez, will obtain chest x-ray and CMP. Will continue to monitor closely. Breasts: Present: deferred Cardiovascular: Present: Normal S1, Normal S2 Lungs: Present: Clear to auscultation Abdomen: Present: normal appearance, soft Vulva: both: normal Uterus: Present: normal, firm Extremities: Present: normal
[2021-06-23] MEDS ORDERED: PRENATAL VIT27-FE FUMARATE-FOLIC ACID VIT TAB PO SCH (10:00)
--- NOTE | 2021-06-23 10:04 | Post Anesthesia Evaluation ---
- Post Anesthesia Evaluation Patient Participated: Yes Airway Patent: Yes Stable Respiratory Function: Yes Nausea/Vomiting: No Temp > 96.8F: Yes Pain Manageable: Yes Adequeate Hydration: Yes Anesthesia Complications: No Block Receding Appropriately: Yes Patient on Ventilator: No
[2021-06-23] MEDS: DOCUSATE SODIUM 100 MG CAP PO SCH ×2 (14:21→22:42)
[2021-06-23 15:54] LABS: Alanine Aminotransferase 11 units/L (7-56); Albumin 2.7 g/dL (3.9-5); Blood Urea Nitrogen 5 mg/dL (7-17); Calcium 8.6 mg/dL (8.4-10.2); Hemolysis Index 3
[2021-06-23 15:55] LABS: BUN/Creatinine Ratio 8
[2021-06-23] MEDS ORDERED: TETANUS,DIPH,PERTUSS(ACELL) VACCINE 0.5 ML SYRINGE IM ONE (17:40)
[2021-06-24] MEDS: IBUPROFEN 800 MG TAB PO SCH ×2 (02:42→04:50)
[2021-06-24] MEDS ORDERED: TETANUS,DIPH,PERTUSS(ACELL) VACCINE 0.5 ML SYRINGE IM ONE (06:00)
--- NOTE | 2021-06-24 07:47 | Discharge Summary ---
Providers - Providers Date of Admission: 06/20/21 20:56 Date of discharge: 06/24/21 Attending physician: MILLIE WEBSTER MD Primary care physician: MILLIE WEBSTER MD Hospitalization Reason for admission: induction of labor Delivery: Episiotomy: none Laceration: none complications: none Discharge diagnosis: other (IUGR IOL ) baby: male Hospital course: Funds firm, lochia scant, Uncomplicated delivery and pp course Condition at discharge: Good Disposition: 01 HOME / SELF CARE / HOMELESS - Discharge Diagnoses (1) (normal spontaneous vaginal delivery) Status: Acute Plan - Provider Discharge Summary Activity: routine, no heavy lifting 4 weeks, no strenuous exercise Diet: routine Instructions: routine Additional instructions: [] Smoking cessation referral if applicable(refer to patient education folder for contact #) [] Refer to [facility] Booklet Call your doctor immediately for: * Fever > 100.5 * Heavy vaginal bleeding ( >1 pad per hour) * Severe persistent headache * Shortness of breath * Reddened, hot, painful area to leg or breast * Drainage or odor from incision. * Keep incision clean and dry at all times and follow doctor's instructions regarding bathing/showering "Congratulations on the of your baby boy! Please schedule his circumcision appointment in the office in 1 week. You have been prescribed EMLA cream. Please do not use this cream at home, but bring it with you to your son's circumcision. Please schedule your (after the of your baby) visit in the office in 4-6 weeks. Should you have any questions or concerns please do not hesitate to call the office at [phone]. - Follow up plan Follow up: MILLIE WEBSTER MD [Primary Care Provider] - 7 Days (Congratulations! Please call [phone] to schedule your son's circumcison for 1 week and your follow up for 4 weeks. )
[2021-06-24 10:56] VITALS: BP 110/78
== END 2021-06-24 11:00 | disposition home or self-care (01) | DRG 775 ==
LOC: LD 20:56 → OB 06-22 18:47
PROVIDERS: ADMIT Student in an Organized Health Care Education/Training Program; ATTEND Student in an Organized Health Care Education/Training Program
PROC: 10E0XZZ Delivery of Products of Conception, External Approach (ICD-10-PCS; principal; 2021-06-22)
PROC: 3E0P7VZ Introduction of Hormone into Female Reproductive, Via Natural or Artificial Opening (ICD-10-PCS; 2021-06-22)
PROC: 3E0R3BZ Introduction of Anesthetic Agent into Spinal Canal, Percutaneous Approach (ICD-10-PCS; 2021-06-22)
PROC: 00HU33Z Insertion of Infusion Device into Spinal Canal, Percutaneous Approach (ICD-10-PCS; 2021-06-22)
PROC: 0U7C7ZZ Dilation of Cervix, Via Natural or Artificial Opening (ICD-10-PCS; 2021-06-22)
PROC: 3E0234Z Introduction of Serum, Toxoid and Vaccine into Muscle, Percutaneous Approach (ICD-10-PCS; 2021-06-24)
DX: O36.5930 Maternal care for other known or suspected poor fetal growth, third trimester, not applicable or unspecified (principal); O99.820 Streptococcus B carrier state complicating pregnancy; Z3A.38 38 weeks gestation of pregnancy; Z23 Encounter for immunization; Z20.822 Contact with and (suspected) exposure to COVID-19; Z37.0 Single live birth; O76 Abnormality in fetal heart rate and rhythm complicating labor and delivery
CPT/HCPCS: 36415; 59200; 76815; 80053; 85014; 85018; 85027; 86592; 86850; 86900; 86901; 90471; 90715; 96361; 96365; 96374; G0378; J0290; J0595; J2300; J2590; J3010; J7120; U0003

== ENCOUNTER 2021-10-12 14:54 | Emergency (ER) | payer MEDICAID ==
--- NOTE | 2021-10-12 17:46 | XRay Report ---
CHEST 2 VIEWS INDICATION: chest tightness. COMPARISON: None FINDINGS: SUPPORT DEVICES: None. HEART: Within normal limits. LUNGS/PLEURA: No acute air space or interstitial disease. No pneumothorax. ADDITIONAL FINDINGS: None. IMPRESSION: 1. No acute findings. Signer Name: Ashok Oliva MD Signed: 10/12/2021 5:41 PM Workstation Name: [id number]
--- NOTE | 2021-10-12 18:35 | Emergency Department Report ---
ED General Adult HPI - General Chief complaint: Chest Pain Stated complaint: CHEST PROBLEMS Time Seen by Provider: 10/12/21 16:57 Source: patient Mode of arrival: Ambulatory Limitations: No Limitations - History of Present Illness Initial comments: 20-year-old -Citizen Of [place] female patient presents with intermittent chest tightness for 1 week. she states the tightness occurs with deep inhalation and worsens when she is around smoke. Patient denies being a smoker, chest wall trauma, cough, shortness of breath, hemoptysis, recent long travel, leg pain/swelling, hormone use, history of cancer, or history of DVT/PE. She rates her current pain as a 4/10 in severity. She has not tried any OTC medications for her symptoms. Patient admits to a history of anxiety. She also states she has had costochondritis in the past and that this feels the exact same. Patient reports she has received her COVID-19 vaccine and denies any loss of taste or s ana or fever/chills/sweats - Related Data Previous Rx's Medication Instructions Recorded Last Taken Type Lidocain2.5%/Prilocai2.5% [Emla] 1 applic TP ONCE #1 tube 06/24/21 Unknown Rx RX: Naproxen [EC-Naprosyn] 500 mg PO BID PRN #14 tab 10/12/21 Unknown Rx RX: predniSONE 10 mg PO BID 3 Days #6 tab 10/12/21 Unknown Rx Allergies Allergy/AdvReac Type Severity Reaction Status Date / Time No Known Allergies Allergy Verified 10/12/21 16:16 ED Review of Systems ROS: Stated complaint: CHEST PROBLEMS Other details as noted in HPI Constitutional: denies: chills, fever, malaise Respiratory: denies: cough, shortness of breath Cardiovascular: as per HPI. denies: edema Gastrointestinal: denies: abdominal pain Skin: denies: rash, lesions, change in color Neurological: denies: headache ED Past Medical Hx - Past Medical History Hx Hypertension: No Hx Diabetes: No Hx Deep Vein Thrombosis: No Hx Renal Disease: No Hx Sickle Cell Disease: No Hx Seizures: Yes (as a baby) Hx Asthma: No Hx HIV: No - Social History Smoking Status: Never Smoker - Medications Home Medications: Home Medications Medication Instructions Recorded Confirmed Last Taken Type Lidocain2.5%/Prilocai2.5% [Emla] 1 applic TP ONCE #1 tube 06/24/21 Unknown Rx RX: Naproxen [EC-Naprosyn] 500 mg PO BID PRN #14 tab 10/12/21 Unknown Rx RX: predniSONE 10 mg PO BID 3 Days #6 tab 10/12/21 Unknown Rx ED Physical Exam - General Limitations: No Limitations General appearance: alert, in no apparent distress - Head Head exam: Present: atraumatic, normocephalic - Eye Eye exam: Present: normal appearance. Absent: scleral icterus - Neck Neck exam: Present: normal inspection, full ROM - Respiratory Respiratory exam: Present: normal lung sounds bilaterally. Absent: respiratory distress, chest wall tenderness - Cardiovascular Cardiovascular Exam: Present: regular rate, normal rhythm. Absent: systolic murmur, diastolic murmur, rubs, gallop - GI/Abdominal GI/Abdominal exam: Present: soft. Absent: tenderness - Extremities Exam Extremities exam: Absent: calf tenderness (no pain or swelling noted bilaterally to legs) - Back Exam Back exam: Present: full ROM - Neurological Exam Neurological exam: Present: alert, oriented X3, normal gait - Psychiatric Psychiatric exam: Present: normal affect, normal mood - Skin Skin exam: Present: warm, dry, intact, normal color. Absent: rash ED Course Vital Signs 10/12/21 16:15 Temperature 98.7 F Pulse Rate 92 H Respiratory 16 Rate Blood Pressure 126/86 O2 Sat by Pulse 100 Oximetry ED Medical Decision Making - EKG Data EKG shows normal: sinus rhythm Rate: normal - EKG Data Interpretation: normal EKG - Radiology Data Radiology results: report reviewed CHEST 2 VIEWS INDICATION: chest tightness. COMPARISON: None FINDINGS: SUPPORT DEVICES: None. HEART: Within normal limits. LUNGS/PLEURA: No acute air space or interstitial disease. No pneumothorax. ADDITIONAL FINDINGS: None. IMPRESSION: 1. No acute findings. - Medical Decision Making 20-year-old -Citizen Of [place] female patient presents with intermittent chest tightness for 1 week. she states the tightness occurs with deep inhalation and worsens when she is around smoke. Patient denies being a smoker, chest wall trauma, cough, shortness of breath, hemoptysis, recent long travel, leg pain/swelling, hormone use, history of cancer, or history of DVT/PE. She rates her current pain as a 4/10 in severity. She has not tried any OTC medications for her symptoms. Patient admits to a history of anxiety. She also states she has had costochondritis in the past and that this feels the exact same. Patient reports she has received her COVID-19 vaccine and denies any loss of taste or smell or fever/chills/sweats Chest x-ray is normal. EKG is normal. Lungs are clear to auscultation bilaterally along with regular rate and rhythm and heart sounds on exam. PERC score = 0. She is well-appearing and her vitals are normal. Patient is stable for discharge home. Given history, will try a trial of NSAIDs for possible costochondritis. Recommend follow-up with primary care doctor in 3 days. Discussed in great detail signs and symptoms that should prompt immediate return to the emergency department with patient who verbalizes understanding. Critical care attestation.: If time is entered above; I have spent that time in minutes in the direct care of this critically ill patient, excluding procedure time. ED Disposition Clinical Impression: Chest tightness Disposition: 01 HOME / SELF CARE / HOMELESS Is pt being admited?: No Condition: Stable Instructions: Costochondritis, [id number], Nonspecific Chest Pain, Adult, [id number] Prescriptions: RX: Naproxen [EC-Naprosyn] 500 mg PO BID PRN #14 tab PRN Reason: pain RX: predniSONE 10 mg PO BID 3 Days #6 tab Referrals: PRIMARY CARE, [Primary Care Provider] - 3-5 Days
[2021-10-12 19:28] VITALS: BP 121/73
--- NOTE | 2021-10-13 10:26 | Electrocardiograph Report ---
[facility] Test Date: 2021-10-12 Test Time: 18:34:54 Pat Name: LETI PAREDES Department: Room: Gender: F Building Services Coordinator: LUZ MARINA : 2000 Requested By: MARIAH MILLIGAN Order Number: [id number] Reading MD: Jose Angel Turner Measurements Intervals [place] Rate: 60 P: -1 RI: 146 QRS: 54 QRSD: 75 T: -18 QT: 381 QTc: 383 Interpretive Statements Sinus rhythm Borderline T abnormalities, diffuse leads No previous ECG available for comparison Electronically Signed On 10-13-2021 10:25:57 EST by Jose Angel Turner
== END 2021-10-12 19:05 | disposition home or self-care (01) ==
LOC: ED 14:54
DX: R07.89 Other chest pain (principal)
CPT/HCPCS: 71046; 93005; 93010; 99283

== ENCOUNTER 2022-02-09 17:38 | Emergency (ER) | payer MEDICAID ==
[2022-02-09 18:59] VITALS: BP 130/81
--- NOTE | 2022-02-09 19:22 | XRay Report ---
CHEST 2 VIEWS INDICATION: chest pain. COMPARISON: 10/12/2021 FINDINGS: SUPPORT DEVICES: None. HEART: Within normal limits. LUNGS/PLEURA: No acute air space or interstitial disease. No pneumothorax. ADDITIONAL FINDINGS: None. IMPRESSION: 1. No acute findings. Signer Name: Ashok Oliva MD Signed: 02/09/2022 7:18 PM Workstation Name: [id number]
== END 2022-02-10 11:09 ==
LOC: ED 17:38
DX: R07.9 Chest pain, unspecified (principal); Z53.21 Procedure and treatment not carried out due to patient leaving prior to being seen by health care provider
CPT/HCPCS: 71046; 93005